=== PATIENT | female | born 1975 | race Caucasian/White ===

== ENCOUNTER → 2023-06-05 | Outpatient (CLI) | payer MEDICARE, SELFPAY ==
[2023-06-05 10:06] LABS: Absolute Lymphocyte Count 0.88 X10^3/uL (0.83-4.51); Absolute Neutrophil Count 5.1 X10^3/uL (2.0-7.7); Basophil# 0.05 X10^3/uL; Basophil% 0.7 % (0-1); Eosinophil# 0.23 X10^3/uL; Eosinophils% 3.4 % (0-5); Hematocrit 41.3 % (37-47); Hemoglobin 13.5 g/dL (12.0-15.0); Lymphocyte # 0.88 X10^3/ul (0.83-4.51); Mean Corp Hgb Conc 32.7 g/dL (32-36); Mean Corpuscular Hgb 29.8 pg (27.0-32.0); Mean Corpuscular Volume 91.2 fL (81-99); Mean Platelet Vol. 11.9 fl (6.2-12.0); Monocyte# 0.53 X10^3/uL; Monocyte% 7.8 % (0-10); NRBC Flagged by Analyzer 0 % (0-5); Neutrophil # 5.06 X10^3/uL (2.7-7.7); Neutrophil % 74.7 % (47-70); Platelet Count 164 K/mm3 (150-450); RBC Distribution Width SD 42.5 fl (35.1-43.9); Red Blood Count 4.53 M/mm3 (4.2-5.4); White Blood Count 6.8 K/mm3 (4.4-11.0)
[2023-06-05 10:30] LABS: Vitamin D,25 Hydroxy 53.5 ng/mL
[2023-06-05 10:32] LABS: Hemoglobin A1c 5.6 % (3.8-5.6)
[2023-06-05 10:33] LABS: PTHIN 10.1 pg/mL (18.4-80.1)
[2023-06-05 10:57] LABS: ALB/GLOB Ratio 1.2 RATIO (0.9-2.4); AST(SGOT) 18 U/L (15-37); Alanine Aminotransfer ALT/SGPT 22 U/L (13-56); Alkaline Phosphatase 61 U/L (45-117); Anion Gap 6 (5-15); BUN 23 mg/dL (7-18); BUN/Creat Ratio 18.1 RATIO (10-20); Calcium,Total 8.6 mg/dL (8.5-10.1); Chloride 99 mmol/L (98-107); Cholesterol 193 mg/dL (200); Creatinine, Serum 1.27 mg/dL (0.55-1.02); EST Glomerular Filtration Rate 48 mL/min (>60); Est Glom Filt Rate - Afr Amer 57 mL/min (>60); Ferritin 305 ng/mL (8-252); Free T3 2.1 pg/mL (2.18-3.98); Globulin 3.4 g/dL (2.2-4.2); Glucose 122 mg/dL (74-106); High Density Lipoprotein 33 mg/dL; Iron 92 ug/dL (50-170); Iron Binding Capacity,Total 268 ug/dL (250-450); Magnesium 2.1 mg/dL (1.6-2.6); PERCENT IRON SATURATION 34.3 % (15.0-55.0); Potassium 4.5 mmol/L (3.5-5.1); Protein, Total 7.4 g/dL (6.4-8.2); Sodium Level 134 mmol/L (136-145); T4 Free Direct 1.64 ng/dL (0.76-1.46); Thyroid Stim Hormone (TSH) 0.72 uIU/mL (0.358-3.74); Triglycerides 246 mg/dL; Very Low Density Lipoprotein 49 mg/dL (5-40)
== END | disposition home or self-care (01) ==
LOC: MFPLAB 08:31
PROVIDERS: PCP Family Medicine; Visit Provider Family Medicine
DX: E83.52 Hypercalcemia (principal); E11.22 Type 2 diabetes mellitus with diabetic chronic kidney disease; N18.30 Chronic kidney disease, stage 3 unspecified; E03.8 Other specified hypothyroidism
CPT/HCPCS: 36415; 80053; 80061; 82306; 82728; 83036; 83540; 83550; 83735; 83970; 84439; 84443; 84481; 85025

== ENCOUNTER → 2023-07-01 | Outpatient (CLI) | payer MEDICARE, OTHER, SELFPAY ==
[2023-07-01 16:31] LABS: PTHIN 13.3 pg/mL (18.4-80.1)
[2023-07-01 16:48] LABS: Hemoglobin A1c 5.5 % (3.8-5.6)
[2023-07-01 17:05] LABS: ALB/GLOB Ratio 1.4 RATIO (0.9-2.4); AST(SGOT) 27 U/L (15-37); Alanine Aminotransfer ALT/SGPT 26 U/L (13-56); Albumin, Serum 4.7 g/dL (3.2-5.0); Alkaline Phosphatase 58 U/L (45-117); Anion Gap 10 (5-15); BUN 33 mg/dL (7-18); BUN/Creat Ratio 20.2 RATIO (10-20); Calcium,Total 9.4 mg/dL (8.5-10.1); Chloride 98 mmol/L (98-107); Creatinine, Serum 1.63 mg/dL (0.55-1.02); EST Glomerular Filtration Rate 36 mL/min (>60); Est Glom Filt Rate - Afr Amer 43 mL/min (>60); Globulin 3.4 g/dL (2.2-4.2); Glucose 115 mg/dL (74-106); Potassium 4.3 mmol/L (3.5-5.1); Protein, Total 8.1 g/dL (6.4-8.2); Sodium Level 134 mmol/L (136-145)
== END | disposition home or self-care (01) ==
LOC: MTLAB 12:36
PROVIDERS: PCP Family Medicine; Referring Provider Family Medicine; Visit Provider Family Medicine
DX: N39.0 Urinary tract infection, site not specified (principal); E11.9 Type 2 diabetes mellitus without complications
CPT/HCPCS: 36415; 80053; 83036; 83970; 87086

== ENCOUNTER → 2023-07-19 | Outpatient (CLI) | payer MEDICARE, OTHER, SELFPAY ==
--- NOTE | 2023-07-19 09:39 | ECHOD_ITS ---
Reason For Study: Congential Heart Disease Procedure This was a 2D Doppler, Color Flow transthoracic echocardiogram. Exam performed in department. Left Ventricle Normal LV size. The left ventricular ejection fraction is 45 %. Stage 1 diastolic dysfunction. There is mild global hypokinesis of the left ventricle. Right Ventricle Normal RV size. Normal systolic function. Mitral Valve Normal mitral valve. Tricuspid Valve Normal tricuspid valve. Mild (1+) tricuspid valve insufficiency. Pulmonary artery systolic pressure is 40 mmHg. Aortic Valve Mild (1+) aortic valve insufficiency. Pulmonic Valve The pulmonic valve is not well visualized. Mild stenosis of the pulmonic valve. Peak gradient across the prosthetic pulmonic valve 7 mm with a mean gradient of 4 mm. Bioprosthetic pulmonic valve. Great Vessels Mildly dilated aortic root. The pulmonary artery is normal size. Normal inferior vena cava. Pericardium/Pleural No pericardial effusion. MMode/2D Measurements & Calculations LVIDd: 5.5 cm IVSd: 1.1 cm LVOT diam: 2.8 cm LVIDs: 4.3 cm LVPWd: 0.95 cm LVOT area: 6.2 cm2 RVDd: 2.9 cm FS: 21.3 % Ao root diam: 3.5 cm LAV(MOD-bp): 32.3 ml RVOT diam: 1.9 cm LAV(MOD-bp) Indexed: 20.3 ml/m2 LAV(MOD-sp2): 33.0 ml LAV(MOD-sp4): 28.6 ml LVAd ap4: 23.0 cm2 LVAd ap2: 22.9 cm2 SV(MOD-sp4): 31.4 ml LVLd ap4: 6.5 cm LVLd ap2: 6.7 cm EDV(MOD-sp4): 71.5 ml EDV(MOD-sp2): 67.3 ml EDV(sp4-el): 69.8 ml EDV(sp2-el): 66.7 ml LVAs ap4: 16.2 cm2 LVAs ap2: 15.6 cm2 LVLs ap4: 5.7 cm LVLs ap2: 6.0 cm ESV(MOD-sp4): 40.2 ml ESV(MOD-sp2): 36.2 ml ESV(sp4-el): 38.6 ml ESV(sp2-el): 34.3 ml EF(MOD-sp4): 43.8 % EF(MOD-sp2): 46.2 % EF(sp4-el): 44.7 % SV(MOD-sp2): 31.1 ml SV(sp4-el): 31.2 ml LA A4 area: 13.9 cm2 RA A4 area: 13.3 cm2 Doppler Measurements & Calculations MV E max roger: 36.6 cm/sec Lat Peak E' Roger: 13.9 cm/sec Med Peak E' Roger: 3.8 cm/sec MV A max roger: 45.1 cm/sec E/E' lat: 2.6 E/E' med: 9.7 MV E/A: 0.81 Ao V2 max: 89.2 cm/sec AI max roger: 420.6 cm/sec LV V1 max: 61.8 cm/sec Ao max P.2 mmHg AI max P.8 mmHg LV V1 max P.5 mmHg HUSAM(V,D): 4.3 cm2 AI dec slope: 285.0 cm/sec2 AI P1/2t: 432.3 msec PA V2 max: 130.4 cm/sec SV(RVOT): 41.2 ml TR max roger: 300.1 cm/sec PA max PG (full): 4.1 mmHg TR max P.0 mmHg PA V2 mean: 92.0 cm/sec PA mean PG (full): 2.1 mmHg ECHO/Echo Complete Interpretation Summary Normal LV size. The left ventricular ejection fraction is 45 %. Stage 1 diastolic dysfunction. Peak gradient across the prosthetic pulmonic valve 7 mm with a mean gradient of 4 mm Bioprosthetic pulmonic valve. Pulmonary artery systolic pressure is 40 mmHg. Ordering Physician: Maynor Hunter Referring Physician: [place] Performed By: Ceci aRe RDCS
== END | disposition home or self-care (01) ==
PROVIDERS: PCP Family Medicine; Referring Provider Internal Medicine Cardiovascular Disease; Visit Provider Internal Medicine Cardiovascular Disease
DX: Q21.3 Tetralogy of Fallot (principal); Q93.81 Velo-cardio-facial syndrome
CPT/HCPCS: 93306

== ENCOUNTER → 2023-10-29 | Outpatient (CLI) | payer MEDICARE, OTHER, SELFPAY ==
[2023-10-29 10:22] LABS: Ionized Calcium 4.73 mg/dL (4.36-5.20)
[2023-10-29 11:32] LABS: Hemoglobin A1c 5.5 % (3.8-5.6)
[2023-10-29 12:19] LABS: Albumin, Serum 4.2 g/dL (3.2-5.0); BUN 24 mg/dL (7-18); BUN/Creat Ratio 16.7 RATIO (10-20); Calcium,Total 9.2 mg/dL (8.5-10.1); Chloride 98 mmol/L (98-107); Creatinine, Serum 1.44 mg/dL (0.55-1.02); EST Glomerular Filtration Rate 41 mL/min (>60); Est Glom Filt Rate - Afr Amer 50 mL/min (>60); Glucose 126 mg/dL (74-106); Phosphorus 3.4 mg/dL (2.5-4.9); Potassium 4.3 mmol/L (3.5-5.1); Sodium Level 132 mmol/L (136-145)
[2023-10-29 17:20] LABS: Ionized Calcium Order ORDER TUBE
== END | disposition home or self-care (01) ==
LOC: MFPLAB 09:19
PROVIDERS: PCP Family Medicine; Visit Provider Family Medicine
DX: E11.9 Type 2 diabetes mellitus without complications (principal)
CPT/HCPCS: 36415; 80069; 82330; 83036

== ENCOUNTER → 2024-02-20 | Outpatient (CLI) | payer MEDICARE, OTHER, SELFPAY ==
[2024-02-20 12:16] LABS: PTHIN 6.6 pg/mL (18.4-80.1)
[2024-02-20 12:18] LABS: Hemoglobin A1c 5.7 % (3.8-5.6)
[2024-02-20 12:31] LABS: ALB/GLOB Ratio 1.2 RATIO (0.9-2.4); AST(SGOT) 23 U/L (15-37); Alanine Aminotransfer ALT/SGPT 30 U/L (13-56); Albumin, Serum 4.1 g/dL (3.2-5.0); Alkaline Phosphatase 56 U/L (45-117); Anion Gap 6 (5-15); BUN 31 mg/dL (7-18); Calcium,Total 8.9 mg/dL (8.5-10.1); Chloride 103 mmol/L (98-107); Creatinine, Serum 1.55 mg/dL (0.55-1.02); EST Glomerular Filtration Rate 38 mL/min (>60); Est Glom Filt Rate - Afr Amer 46 mL/min (>60); Globulin 3.3 g/dL (2.2-4.2); Glucose 112 mg/dL (74-106); Potassium 4.4 mmol/L (3.5-5.1); Protein, Total 7.4 g/dL (6.4-8.2); Sodium Level 135 mmol/L (136-145); Thyroid Stim Hormone (TSH) 0.809 uIU/mL (0.358-3.740)
== END | disposition home or self-care (01) ==
LOC: MFPLAB 09:24
PROVIDERS: PCP Family Medicine; Visit Provider Family Medicine
DX: E21.3 Hyperparathyroidism, unspecified (principal); E11.9 Type 2 diabetes mellitus without complications; E03.8 Other specified hypothyroidism
CPT/HCPCS: 36415; 80053; 83036; 83970; 84443

== ENCOUNTER → 2024-06-16 | Outpatient (CLI) | payer MEDICARE, OTHER, SELFPAY ==
[2024-06-16 10:54] LABS: Absolute Lymphocyte Count 1.08 X10^3/uL (0.83-4.51); Absolute Neutrophil Count 7.4 X10^3/uL (2.0-7.7); Basophil# 0.06 X10^3/uL; Basophil% 0.6 % (0-1); Eosinophils% 2.1 % (0-5); Hematocrit 39.5 % (37-47); Hemoglobin 12.8 g/dL (12.0-15.0); Lymphocyte # 1.08 X10^3/ul (0.83-4.51); Lymphocyte % 11.6 % (19-41); Mean Corp Hgb Conc 32.4 g/dL (32-36); Mean Corpuscular Hgb 29.7 pg (27.0-32.0); Mean Corpuscular Volume 91.6 fL (81-99); Mean Platelet Vol. 11.3 fl (6.2-12.0); Monocyte# 0.63 X10^3/uL; Monocyte% 6.7 % (0-10); NRBC Flagged by Analyzer 0 % (0-5); Neutrophil # 7.35 X10^3/uL (2.7-7.7); Neutrophil % 78.7 % (47-70); Platelet Count 194 K/mm3 (150-450); RBC Distribution Width CV 12.7 % (11.6-14.6); RBC Distribution Width SD 42.4 fl (35.1-43.9); Red Blood Count 4.31 M/mm3 (4.2-5.4); White Blood Count 9.4 K/mm3 (4.4-11.0)
[2024-06-16 11:52] LABS: Cholesterol 189 mg/dL (<=200); High Density Lipoprotein 39 mg/dL; Low Density Lipoprotein Calc. 117 mg/dL; Triglycerides 166 mg/dL; Very Low Density Lipoprotein 33 mg/dL (5-40); cholesterol:hdl ratio screen 4.81
[2024-06-16 12:33] LABS: ALB/GLOB Ratio 1.6 RATIO (0.9-2.4); Alanine Aminotransfer ALT/SGPT 18 U/L (<=34); Albumin, Serum 4.6 g/dL (3.5-5.0); Alkaline Phosphatase 60 U/L (35-104); Anion Gap 13 (5-15); BUN 30 mg/dL (4-19); BUN/Creat Ratio 21.2 RATIO (10-20); Calcium,Total 9.3 mg/dL (7.6-11.0); Carbon Dioxide 24.2 mmol/L (21.0-32.0); Chloride 99 mmol/L (98-108); Creatinine, Serum 1.41 mg/dL (0.70-1.20); EST Glomerular Filtration Rate 45 (>60); Globulin 2.9 g/dL (2.2-4.2); Glucose 113 mg/dL (70-99); Potassium 4.5 mmol/L (3.3-5.1); Protein, Total 7.4 g/dL (5.9-8.4); Sodium Level 136 mmol/L (133-145); Total Bilirubin 0.31 mg/dL (0.00-1.30)
[2024-06-16 12:47] LABS: AST(SGOT) 22 U/L (<=31); PTHIN 10 pg/mL (11-61)
== END | disposition home or self-care (01) ==
LOC: MFPLAB 08:55
PROVIDERS: PCP Family Medicine; Referring Provider Family Medicine; Visit Provider Family Medicine
DX: E03.8 Other specified hypothyroidism (principal)
CPT/HCPCS: 36415; 80053; 80061; 83970; 84439; 84443; 85025

== ENCOUNTER → 2024-08-12 | Outpatient (CLI) | payer MEDICARE, OTHER, SELFPAY ==
--- NOTE | 2024-08-12 10:03 | BI_ITS ---
EXAM: SCRN MAMM (CAD)W/BAILEE BILAT 08/12/2024 CLINICAL HISTORY: F, Age 49 y/o , SCREENING TECHNIQUE: Bilateral screening digital breast tomosynthesis with 2D and 3D images. Computer aided detection. COMPARISON: Baseline examination, no priors. FINDINGS: TISSUE DENSITY: The breast tissue is composed of scattered area of fibroglandular density. Bilateral Breast Mammographic Findings: There is a mass in the lower central left breast at anterior depth. No significant masses, calcifications or other abnormalities are identified in the right breast BI/SCRN MAMM (CAD)W/BAILEE BILAT IMPRESSION: The mass in the lower central left breast at anterior depth requires further ev aluation. Recommend diagnostic ultrasound of the left breast. Right Breast: BIRADS 1 NEGATIVE. Left Breast: BIRADS 0 Incomplete: Need additional imaging evaluation and/or pr ior mammograms for comparison.. OVERALL FINAL ASSESSMENT: BIRADS 0 Incomplete: Need additional imaging evaluati on and/or prior mammograms for comparison.. RECOMMENDATION: Ultrasound. A letter with findings and recommendations will be mailed to the patient. Reading Location: [id number]
== END | disposition home or self-care (01) ==
LOC: OPBI 10:01
PROVIDERS: PCP Family Medicine; Referring Provider Family Medicine; Visit Provider Family Medicine
DX: Z12.31 Encounter for screening mammogram for malignant neoplasm of breast (principal)
CPT/HCPCS: 77063; 77067

== ENCOUNTER → 2024-08-19 | Outpatient (CLI) | payer MEDICARE, OTHER, SELFPAY ==
--- NOTE | 2024-08-19 12:18 | US_ITS ---
PROCEDURE: BREAST LIMITED UNILATERAL 08/19/2024 REASON FOR EXAM: 49-year-old female presents for follow-up of the left breast findings seen on the examination of 08/12/2024. Family history of breast cancer in her mother at age 47, a maternal great aunt and a paternal grandmother. TECHNIQUE: Targeted left breast ultrasound. COMPARISON: Mammogram 08/12/2024 FINDINGS: Left breast ultrasound was targeted to the retroareolar. Follow-up examination performed for the left breast mass visualized on the examination of 08/12/2024. On the present examination, there is a cyst in the 6 o'clock retroareolar left breast, measuring 0.8 x 0.4 x 0.6 cm. This correlates with the mammographic finding. Also, there are some dilated ducts in the retroareolar region. US/Breast Limited Unilateral IMPRESSION: Impression: Benign cyst in the left breast at 6 o'clock retroareolar. Birads: BI-RADS 2: BENIGN. RECOMMEND ANNUAL MAMMOGRAPHIC SCREENING. Reading Location: [id number]
== END | disposition home or self-care (01) ==
LOC: OPUS 12:16
PROVIDERS: PCP Family Medicine; Referring Provider Family Medicine; Visit Provider Family Medicine
DX: R92.8 Other abnormal and inconclusive findings on diagnostic imaging of breast (principal)
CPT/HCPCS: 76642

== ENCOUNTER → 2024-09-23 | Outpatient (CLI) | payer MEDICARE, OTHER, SELFPAY ==
--- NOTE | 2024-09-23 11:00 | ECHOD_ITS ---
Reason For Study Reason For Study: Hx Tetralogy of Fallot Procedure This was a 2D Doppler, Color Flow transthoracic echocardiogram. Exam performed in department. Left Ventricle Normal LV size. The estimated ejection fraction is 48 %. There is mild global hypokinesis of the left ventricle. Right Ventricle Normal RV size. Normal systolic function. Atria Normal left atrium. Normal right atrium. Mitral Valve Normal mitral valve. Mild (1+) eccentric mitral valve insufficiency. Tricuspid Valve Normal tricuspid valve. Mild (1+) tricuspid valve insufficiency. Pulmonary artery systolic pressure is 33 mmHg. Aortic Valve Trisinus/trileaflet aortic valve. Mild (1+) aortic valve insufficiency. Pulmonic Valve Mild (1+) pulmonic valve insufficiency. No significant gradient across the pulmonic prosthetic valve. Bioprosthetic pulmonic valve. Great Vessels Mildly dilated aortic root. Pericardium/Pleural No pericardial effusion. MMode/2D Measurements & Calculations LVIDd: 5.5 cm IVSd: 0.85 cm LVOT diam: 2.9 cm LVIDs: 4.0 cm LVPWd: 0.78 cm LVOT area: 6.7 cm2 RVDd: 3.3 cm FS: 27.9 % Ao root diam: 3.8 cm LAV(MOD-bp): 39.1 ml RVOT diam: 1.9 cm LAV(MOD-bp) Indexed: 24.3 ml/m2 LAV(MOD-sp2): 45.5 ml LAV(MOD-sp4): 30.9 ml SV(MOD-sp4): 46.5 ml LVAd ap4: 27.2 cm2 LVAd ap2: 23.3 cm2 LVLd ap4: 6.7 cm LVLd ap2: 7.0 cm SI(MOD-sp4): 28.9 ml/m2 EDV(MOD-sp4): 97.3 ml EDV(MOD-sp2): 67.4 ml EDV(sp4-el): 93.9 ml EDV(sp2-el): 66.2 ml LVAs ap4: 18.8 cm2 LVAs ap2: 16.1 cm2 LVLs ap4: 6.1 cm LVLs ap2: 6.6 cm ESV(MOD-sp4): 50.9 ml ESV(MOD-sp2): 35.1 ml ESV(sp4-el): 49.0 ml ESV(sp2-el): 33.3 ml EF(MOD-sp4): 47.7 % EF(MOD-sp2): 48.0 % EF(sp4-el): 47.8 % SV(MOD-sp2): 32.3 ml SV(sp4-el): 44.8 ml LA A4 area: 14.6 cm2 SI(MOD-sp2): 20.2 ml/m2 LA dimension(2D): 2.5 cm RA A4 area: 19.1 cm2 Time Measurements MV dec time: 0.13 sec Doppler Measurements & Calculations MV E max roger: 52.5 cm/sec Lat Peak E' Roger: 14.4 cm/sec Med Peak E' Roger: 4.3 cm/sec MV A max roger: 47.6 cm/sec E/E' lat: 3.6 E/E' med: 12.1 MV E/A: 1.1 MV dec slope: 417.1 cm/sec2 Ao V2 max: 85.1 cm/sec AI max roger: 383.0 cm/sec Ao max P.9 mmHg AI max P.8 mmHg Ao V2 mean: 60.1 cm/sec AI dec slope: 222.6 cm/sec2 Ao mean P.6 mmHg AI P1/2t: 504.0 msec Ao V2 VTI: 18.2 cm AV (velocity ratio): 0.61 HUSAM(I,D): 4.1 cm2 HUSAM(V,D): 4.2 cm2 LV V1 max: 54.0 cm/sec SV(LVOT): 74.2 ml PA V2 max: 126.7 cm/sec LV V1 max P.2 mmHg PA V2 mean: 85.3 cm/sec LV V1 mean P.62 mmHg PA mean PG (full): 2.4 mmHg LV V1 mean: 37.8 cm/sec LV V1 VTI: 11.1 cm SV(RVOT): 45.4 ml TR max roger: 271.1 cm/sec Qp/Qs: 1.0/1.6 TR max P.4 mmHg ECHO/Echo Complete Interpretation Summary Normal LV size. The estimated ejection fraction is 48 %. No significant gradient across the pulmonic prosthetic valve. Mild (1+) aortic valve insufficiency. Compared to the previous echo from a year ago the above findings are essentiall y unchanged. Ordering Physician: Maynor Hunter Referring Physician: [place] Performed By: Ceci Rae RDCS
== END | disposition home or self-care (01) ==
LOC: CVS 10:59
PROVIDERS: PCP Family Medicine; Referring Provider Internal Medicine Cardiovascular Disease; Visit Provider Internal Medicine Cardiovascular Disease
DX: Q21.3 Tetralogy of Fallot (principal); Q25.5 Atresia of pulmonary artery; Z95.2 Presence of prosthetic heart valve
CPT/HCPCS: 93306

== ENCOUNTER → 2024-10-06 | Outpatient (CLI) | payer MEDICARE, OTHER, SELFPAY ==
--- OUTSIDE RECORDS SUMMARY | 2024-10-06 21:09 | XMS RPT_ITS | CCD ---
Author Organization [facility] CliniSyut Care Team Providers Care Needle Grader Name Role Phone Dr. Maynor Hunter Attending Provider MD Kita Chalon Primary Care Provider MD Kita Chalon Referring Provider [phone] Kita SANCHEZ, Chalon Primary Care Provider [phone] Kita SANCHEZ, Chalon Referring Provider [phone] Dr. Clifton Villegas DO Attending Provider Italia East MD Attending Provider Kita SANCHEZ, Chalon Primary Care Provider Kita SANCHEZ, Italia Referring Provider [phone] Dr. Maynor Hunter MD Attending Provider Lukasz ENGINE MAINTENANCE MECHANIC-CMeme Attending Provider Dr. Maynor Hunter MD Referring Provider Drew ENGINE MAINTENANCE MECHANIC-CPrincess Attending Provider Princess Russell NP Attending Unavailable Kita, Chalon Primary Care Unavailable Kita, Chalon Primary Care Unavailable Kita, Chalon Attending Unavailable Kita, Chalon Primary Care Unavailable Meme Lal Attending Unavailable Lal, Meme Referring Unavailable Kita, Chalon Primary Care Unavailable Lal, Meme Attending Unavailable Lal, Meme Referring Unavailable Kita, Chalon Attending Unavailable Kita, Chalon Primary Care Unavailable Clifton Villegas Attending Unavailable Kita, Chalon Referring Unavailable Kita, Chalon Primary Care Unavailable Maynor Hunter Attending Unavailable Kita, Chalon Referring Unavailable Kita, Chalon Primary Care Unavailable Lal, Meme Attending Unavailable Kita, Chalon Referring Unavailable Kita, Chalon Primary Care Unavailable Maynor Hunter Attending Unavailable Kita, Chalon Primary Care Unavailable Kita, Chalon Primary Care Unavailable Elsa, Maynor Attending Unavailable Kita, Chalon Referring Unavailable Kita, Chalon Attending Unavailable Kita, Chalon Referring Unavailable Kita, Chalon Primary Care Unavailable Kita, Chalon Attending Unavailable Kita, Chalon Referring Unavailable Kita, Chalon Primary Care Unavailable Kita, Chalon Attending Unavailable Kita, Chalon Referring Unavailable Kita, Chalon Primary Care Unavailable Elsa, Slater Attending Unavailable Elsa, Slater Referring Unavailable Kita, Chalon Primary Care Unavailable Allergies Allergy Classification Reported Allergen(s) Allergy Type Date of Onset Reaction(s) Facility (6 sources) Codeine Drug Allergy 4 Anaphylaxis [facility] (6 sources) EPINEPHrine Drug Allergy 4 Other [facility] Comment on above: rotor coil taper said t o avoid (6 sources) Erythromycin Drug Allergy 4 Hives [facility] (6 sources) Morphine Drug Allergy 4 Anaphylaxis [facility] (6 sources) Ondansetron Drug Allergy 4 Anaphylaxis [facility] (6 sources) Sulfonamides (Antibiotic) Allergy to substance 4 Rash [facility] (1 source) Codeine Drug Allergy 5 [facility] Repository (1 source) EPINEPHrine Drug Allergy 5 [facility] (1 source) Erythromycin Drug Allergy 5 [facility] (1 source) Morphine Drug Allergy 5 [facility] (1 source) Ondansetron Drug Allergy 5 [facility] (1 source) Sulfonamides (Antibiotic) Drug allergy (disorder) 5 [facility] Medications Current Medications Medication Drug Class(es) Dates Sig (Normalized) Sig (Original) [id number] 200 actuat albuterol 0.09 mg/actuat metered dose inhaler (6 sources) beta2-Adrenergic Agonist Start: 06-05-2023 Albuterol Sulfate 90 mcg/actuation HFA aerosol inhaler Active 2 NMA INHALATION EVERY 6 HOURS as needed June 05, 2023 1:00am Start: 06-05-2023 take 1 puff(s) by in halation every six hours Albuterol Sulfate Active 2 PUFF INHALATION EVERY 6 HOURS June 05, 2023 1:00am aspirin 81 mg delayed release oral tablet (6 sources) Platelet Aggregation Inhibitor, Nonsteroidal Anti-inflammatory Drug Start: 06-05-2023 take 1 tablet by mouth once daily Aspirin (Adult Aspirin Regimen) 81 mg tablet,delayed release (DR/EC) Active 81 mg PO DAILY June 05, 2023 1:00am calcitriol 0.88693 mg oral capsule (6 sources) Vitamin D3 Analog Start: 06-05-2023 take 1 capsule by mouth once daily Calcitriol 0.25 mcg capsule Active 0.25 ug PO DAILY June 05, 2023 1:00am calcium carbonate 1250 mg chewable tablet (6 sources) Start: 06-05-2023 take 1 tablet by mouth once daily Calcium Carbonate 500 mg calcium (1,250 mg) tablet,chewable Active 500 mg PO DAILY June 05, 2023 1:00am cholecalciferol 0.05 mg oral capsule (6 sources) Vitamin D Start: 06-05-2023 take 1 capsule by mouth once daily Cholecalciferol (Vitamin D3) 50 mcg (2,000 unit) capsule Active 50 ug PO DAILY June 05, 2023 1:00am docusate sodium 250 mg oral capsule (10 sources) Start: 06-05-2023 End: 01-10-2024 take 1 capsule by mouth once daily as needed Docusate Sodium 250 mg capsule Active 250 mg PO DAILY as needed January 10, 2024 12:34pm fenofibrate 54 mg oral tablet (6 sources) Peroxisome Proliferator Receptor alpha Agonist Start: 06-05-2023 take 1 tablet by mouth once daily Fenofibrate 54 mg tablet Active 54 mg PO DAILY June 05, 2023 1:00am ferrous sulfate 325 mg oral tablet (6 sources) Start: 06-05-2023 take 1 tablet by mouth once daily Ferrous Sulfate 325 mg (65 mg iron) tablet Active 325 mg PO DAILY June 05, 2023 1:00am fexofenadine hydrochloride 60 mg oral tablet (6 sources) Histamine-1 Receptor Antagonist Start: 06-05-2023 take 1 tablet by mouth twice daily Fexofenadine 60 mg tablet Active 60 mg PO TWICE A DAY June 05, 2023 1:00am fluticasone propionate 0.05 mg/actuat metered dose nasal spray (10 sources) Corticosteroid Start: 06-05-2023 End: 05-20-2024 Fluticasone Propionate 50 mcg/actuation spray,suspension Active 1 NMA INTRANASAL DAILY May 20, 2024 2:05pm administer into each nostril Start: 06-05-2023 take 1 spray(s) nasa l route once daily Fluticasone Propionate Active 1 SPRAY INTRANASAL DAILY June 05, 2023 1:00am administer into each nostril 30 actuat fluticasone furoate 0.2 mg/actuat / vilanterol 0.025 mg/actuat dry powder inhaler (10 sources) Corticosteroid, beta2-Adrenergic Agonist Start: 06-05-2023 End: 05-20-2024 Fluticasone Furoate-Vilanterol (Breo Ellipta) 200-25 mcg/dose blister with device Active 1 NMA INHALATION DAILY May 20, 2024 2:05pm Start: 06-05-2023 Fluticasone Fu roate-Vilanterol (Breo Ellipta) 200-25 mcg/dose blister with device Active 1 INH INHALATION DAILY June 05, 2023 1:00am levothyroxine sodium 0.137 mg oral tablet (16 sources) l-Thyroxine Start: 03-27-2024 take 1 tablet by mouth once daily Levothyroxine 137 mcg tablet Active 137 ug PO daily March 27, 2024 1:00am Start: 06-19-2023 Levothyroxine Active 137 MCG PO .COMPLEX June 19, 2023 11:57am 137 mcg orally take one tablet daily plus 1/2 tablet on Sund; Start: 06-05-2023 End: 03-27-2024 Levothyroxine 150 mcg capsul e Discontinued 137 ug PO .COMPLEX June 19, 2023 11:57am March 27, 2024 12:13pm 137 mcg orally take one tablet daily plus 1/2 tablet on Sund; LORazepam 1 mg oral tablet (12 sources) Benzodiazepine Start: 06-05-2023 End: 06-19-2023 take 1 tablet by mouth at bedtime as needed Lorazepam 1 mg tablet Active 1 mg PO AT BEDTIME as needed June 19, 2023 11:59am magnesium oxide 250 mg oral tablet (6 sources) Start: 06-05-2023 take 1 tablet by mouth once daily Magnesium Oxide 250 mg magnesium tablet Active 250 mg PO DAILY June 05, 2023 1:00am 24 hr metoprolol succinate 25 mg extended release oral tablet (16 sources) beta-Adrenergic Keily Start: 06-05-2023 End: 11-26-2023 Metoprolol Succinate (Toprol Xl) 25 mg tablet extended release 24 hr Active 37.5 mg PO DAILY November 26, 2023 11:04am Start: 06-05-2023 End: 06-05-2023 take 1 tablet by mouth once daily Metoprolol Succinate (Toprol Xl) 25 mg tablet extended release 24 hr Discontinued 25 mg PO DAILY June 05, 2023 1:00am June 05, 2023 10:37am montelukast 10 mg oral tablet (10 sources) Leukotriene Receptor Antagonist Start: 06-05-2023 End: 05-20-2024 take 1 tablet by mouth at bedtime Montelukast (Singulair) 10 mg tablet Active 10 mg PO AT BEDTIME 90 May 20, 2024 2:06pm OLANZapine 10 mg oral tablet (6 sources) Atypical Antipsychotic Start: 06-05-2023 take 1 tablet by mouth at bedtime Olanzapine (Zyprexa) 10 mg tablet Active 10 mg PO AT BEDTIME June 05, 2023 1:00am omeprazole 20 mg delayed release oral capsule (6 sources) Proton Pump Inhibitor Start: 06-05-2023 take 1 capsule by mouth once daily Omeprazole 20 mg capsule,delayed release(DR/EC) Active 20 mg PO DAILY June 05, 2023 1:00am Completed/Discontinued Medications Medication Drug Class(es) Dates Sig (Normalized) Sig (Original) amoxicillin 500 mg oral capsule (12 sources) Penicillin-class Antibacterial Start: 06-05-2023 End: 03-27-2024 take 1 capsule by mouth once daily as needed Amoxicillin 500 mg capsule Discontinued 500 mg PO DAILY as needed June 05, 2023 10:22am March 27, 2024 12:13pm Start: 06-05-2023 End: 06-05-2023 take 1 capsule by mouth twice daily Amoxicillin 500 mg capsule Discontinued 500 mg PO TWICE A DAY June 05, 2023 1:00am June 05, 2023 10:37am furosemide 20 mg oral tablet (18 sources) Loop Diuretic Start: 06-05-2023 End: 06-19-2023 Furosemide (Lasix) 20 mg tablet Discontinued 20 mg PO .COMPLEX June 05, 2023 10:24am June 19, 2023 12:48pm 20 mg orally; take 1 tablet on Saturday, 1/2 tablet on Saturday and Saturday. May take additional 1/2 tab for weight gain of more than 2lbs. 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; Translations: [Atresia of pulmonary artery] Onset: 03-27-2024 06-05-2023 Chronic Comment on above: VSD repair, ASD clos ure and pulmonary valve replacement 2016 Cardiac dysrhythmias (6 sources) Palpitations; Translations: [Palpitations] 06-05-2023 Episodic Chronic kidney disease (6 sources) Chronic kidney disease; Translations: [Chronic kidney disease, unspecified] 06-05-2023 Chronic Chronic obstructive pulmonary disease and bronchiectasis (6 sources) Obstruction of lower respiratory tract; Translations: [Chronic obstructive pulmonary disease, unspecified] 06-05-2023 Chronic Congestive heart failure; nonhypertensive (6 sources) Congestive heart failure; Translations: [Heart failure, unspecified] 06-20-2023 Chronic Deficiency and other anemia (6 sources) Iron deficiency anemia; Translations: [Iron deficiency anemia, unspecified] 06-20-2023 Episodic Diabetes mellitus without complication (7 sources) Diabetes mellitus; Translations: [Type 2 diabetes mellitus without complications] Onset: 11-14-2023 06-05-2023 Chronic Disorders of lipid metabolism (11 sources) Hypertriglyceridemi a; Translations: [Pure hyperglyceridemia] 06-05-2023 Chronic Heart valve disorders (6 sources) Pulmonic valve stenosis; 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] 06-20-2023 Chronic Immunity disorders (11 sources) 22q11.2 deletion syndrome; 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] 06-05-2023 Chronic Mood disorders (6 sources) Bipolar disorder; Translations: [Bipolar disorder, unspecified] 06-05-2023 Chronic Other and ill-defined heart disease (6 sources) Left ventricular systolic dysfunction; Translations: [Heart disease, unspecified] 06-05-2023 Chronic Other and ill-defined heart disease (6 sources) Left cardiac ventricular dilatation; Translations: [Cardiomegaly] 06-05-2023 Chronic Other ear and sense organ disorders (6 sources) Hearing loss; Translations: [Unspecified hearing loss, unspecified ear] 06-20-2023 Chronic Other endocrine disorders (6 sources) Hypoparathyroidism; Translations: [Hypoparathyroidism , unspecified] 06-20-2023 Chronic Other endocrine disorders (1 source) Hyperparathyroidism , unspecified; Translations: [Hyperparathyroidis m, unspecified] Onset: 03-16-2024 Chronic Other lower respiratory disease (6 sources) Respiratory insufficiency; Translations: [Other disorders of lung] 06-05-2023 Episodic Other lower respiratory disease (4 sources) Dyspnea; Translations: [Dyspnea, unspecified] 09-21-2024 Episodic Other lower respiratory disease (2 sources) Dyspnea, unspecified; Translations: [Dyspnea, unspecified] Onset: 09-21-2024 Episodic Other nutritional; endocrine; and metabolic disorders (6 sources) Hypercalcemia; Translations: [Hypercalcemia] 06-20-2023 Chronic Other screening for suspected conditions (not mental disorders or infectious disease) (2 sources) Other abnormal and inconclusive findings on diagnostic imaging of breast; Translations: [Encounter for screening mammogram for malignant neoplasm of breast] Onset: 08-18-2024 Episodic Amanda-; endo-; and myocarditis; cardiomyopathy (except that caused by tuberculosis or sexually transmitted disease) (6 sources) Cardiomyopathy; Translations: [Cardiomyopathy, unspecified] 06-20-2023 Chronic Pulmonary heart disease (6 sources) Pulmonary hypertension; Translations: [Pulmonary hypertension, unspecified] 06-20-2023 Chronic Residual codes; unclassified (9 sources) Obstructive sleep apnea syndrome; Translations: [Obstructive sleep apnea (adult) (pediatric)] 06-20-2023 Chronic Comment on above: AutoPap Residual codes; unclassified (1 source) Obstructive sleep apnea (adult) (pediatric); Translations: [Obstructive sleep apnea (adult) (pediatric)] Onset: 03-27-2024 Chronic Syncope (11 sources) Syncope; Translations: [Syncope and collapse] 06-19-2023 Episodic Thyroid disorders (1 source) Other specified hypothyroidism; Translations: [Other specified hypothyroidism] Onset: 06-30-2024 Chronic Unclassified (2 sources) This note was generated with WorkCastation software. It may contain incorrect words, spelling, and punctuation that were not noted in checking the note before signing. 09-21-2024 Results Test Name Value Interpretation Reference Range Facility Echocardiogram study reportO rdered By: Maynor Hunter on 09-28-2024 Study report [facility] [address] [place] [address] Echo Complete 09/23/24 1106 MR#: [id number] Acct: [id number] Name: ALVA BARNES JULIET Rep #:[id number] : 1975 49 From: Maynor Payton Attending Dr: Dr. Maynor Hunter MD S tatus: REG CLI Ordering Dr: Maynor Hunter MD Date: 03/09 Location: [facility] Sex: F C Admitted: Reason For Study Reason For Study: Hx Tetralogy of Fallot Procedure This was a 2D Doppler, Color Flow transthoracic echocardiogram. Exam performed in department. Left Ventricle Normal LV size. The estimated ejection fraction is 48 %. There is mild global hypokinesis of the left ventricle. Right Ventricle Normal RV size. Normal systolic function. Atria Normal left atrium. Normal right atrium. Mitral Valve Normal mitral valve. Mild (1+) eccentric mitral valve insufficiency. Tricuspid Valve Normal tricuspid valve. Mild (1+) tricuspid valve insufficiency. Pulmonary artery systolic pressure is 33 mmHg. Aortic Valve Trisinus/trileaflet aortic valve. Mild (1+) aortic valve insufficiency. Pulmonic Valve Mild (1+) pulmonic valve insufficiency. No significant gradient across the pulmonic prosthetic valve. Bioprosthetic pulmonic valve. Great Vessels Mildly dilated aortic root. Pericardium/Pleural No pericardial effusion. MMode/2D Measurements & Calculations LVIDd: 5.5 cm IVSd: 0.85 cm LVOT diam: 2.9 cm LVIDs: 4.0 cm LVPWd: 0.78 cm LVOT area: 6.7 cm2 RVDd: 3.3 cm FS: 27.9 % __ Ao root diam: 3.8 cm LAV(MOD-bp): 39.1 ml RVOT diam: 1.9 cm LAV(MOD-bp) Indexed: 24.3 ml/m2 LAV(MOD-sp2): 45.5 ml LAV(MOD-sp4): 30.9 ml __ SV(MOD-sp4): 46.5 ml LVAd ap4: 27.2 cm2 LVAd ap2: 23.3 cm2 LVLd ap4: 6.7 cm LVLd ap2: 7.0 cm SI(MOD-sp4): 28.9 ml/m2 EDV(MOD-sp4): 97.3 ml EDV(MOD-sp2): 67.4 ml EDV(sp4-el): 93.9 ml EDV(sp2-el): 66.2 ml LVAs ap4: 18.8 cm2 LVAs ap2: 16.1 cm2 LVLs ap4: 6.1 cm LVLs ap2: 6.6 cm ESV(MOD-sp4): 50.9 ml ESV(MOD-sp2): 35.1 ml ESV(sp4-el): 49.0 ml ESV(sp2-el): 33.3 ml EF(MOD-sp4): 47.7 % EF(MOD-sp2): 48.0 % EF(sp4-el): 47.8 % __ SV(MOD-sp2): 32.3 ml SV(sp4-el): 44.8 ml LA A4 area: 14.6 cm2 SI(MOD-sp2): 20.2 ml/m2 LA dimension(2D): 2.5 cm RA A4 area: 19.1 cm2 Time Measurements MV dec time: 0.13 sec Doppler Measurements & Calculations MV E max roger: 52.5 cm/sec Lat Peak E' Roger: 14.4 cm/sec Med Peak E' Roger: 4.3 cm/sec MV A max roger: 47.6 cm/sec E/E' lat: 3.6 E/E' med: 12.1 MV E/A: 1.1 ____ MV dec slope: 417.1 cm/sec2 Ao V2 max: 85.1 cm/sec AI max roger: 383.0 cm/sec Ao max P.9 mmHg AI max P.8 mmHg Ao V2 mean: 60.1 cm/sec AI dec slope: 222.6 cm/sec2 Ao mean P.6 mmHg AI P1/2t: 504.0 msec Ao V2 VTI: 18.2 cm AV (velocity ratio): 0.61 HUSAM(I,D): 4.1 cm2 HUSAM(V,D): 4.2 cm2 ____ LV V1 max: 54.0 cm/sec SV(LVOT): 74.2 ml PA V2 max: 126.7 cm/sec LV V1 max P.2 mmHg PA V2 mean: 85.3 cm/sec LV V1 mean P.62 mmHg PA mean PG (full): 2.4 mmHg LV V1 mean: 37.8 cm/sec LV V1 VTI: 11.1 cm __ SV(RVOT): 45.4 ml TR max roger: 271.1 cm/sec Qp/Qs: 1.0/1.6 TR max P.4 mmHg ECHO/Echo Complete Interpretation Summary Normal LV size. The estimated ejection fraction is 48 %. No significant gradient across the pulmonic prosthetic valve. Mild (1+) aortic valve insufficiency. Compared to the previous echo from a year ago the above findings are essentiallyunchange d. __ Ordering Physician: Maynor Hunter Referring Physician: Italia East Performed By: Ceci Rae, RDCS 09/28/24914 Date _ Maynor Hunter MD CC: Dr. Italia East MD; Dr. Maynor Hunter MD ~ Date Dictated: 09/23/24 1106 Date Transcribed: 09/28/24914 Photographer Model: Signed [facility] Work Phone: Echo Completeon 09-23-2024 Echo Complete [facility] [address] [place] [address] Echo Complete 09/23/241105 MR#: [id number] Acct: [id number] Name: ALVA BARNES JULIET Rep #: [id number] : 1975 49 From: Maynor Hunter MD Attending Dr: Dr. Maynor Hunter MD Status: REG C Ordering Dr: Maynor Hunter MD Date: 09/23/24 Location: [facility] Sex: F C Admitted: Reason For Study Reason For Study: Hx Tetralogy of Fallot Procedure This was a 2D Doppler, Color Flow transthoracic echocardiogram. Exam performed in department. Left Ventricle Normal LV size. The estimated ejection fraction is 48 %. There is mild global hypokinesis of the left ventricle. Right Ventricle Normal RV size. Normal systolic function. Atria Normal left atrium. Normal right atrium. Mitral Valve Normal mitral valve. Mild (1+) eccentric mitral valve insufficiency. Tricuspid Valve Normal tricuspid valve. Mild (1+) tricuspid valve insufficiency. Pulmonary artery systolic pressure is 33 mmHg. Aortic Valve Trisinus/trileaflet aortic valve. Mild (1+) aortic valve insufficiency. Pulmonic Valve Mild (1+) pulmonic valve insufficiency. No significant gradient across the pulmonic prosthetic valve. Bioprosthetic pulmonic valve. Great Vessels Mildly dilated aortic root. Pericardium/Pleural No pericardial effusion. MMode/2D Measurements Calculations LVIDd: 5.5 cm IVSd: 0.85 cm LVOT diam: 2.9 cm LVIDs: 4.0 cm LVPWd: 0.78 cm LVOT area: 6.7 cm2 RVDd: 3.3 cm FS: 27.9 % __ Ao root diam: 3.8 cm LAV(MOD-bp): 39.1 ml RVOT diam: 1.9 cm LAV(MOD-bp) Indexed: 24.3 ml/m2 LAV(MOD-sp2): 45.5 ml LAV(MOD-sp4): 30.9 ml __ SV(MOD-sp4): 46.5 ml LVAd ap4: 27.2 cm2 LVAd ap2: 23.3 cm2 LVLd ap4: 6.7 cm LVLd ap2: 7.0 cm SI(MOD-sp4): 28.9 ml/m2 EDV(MOD-sp4): 97.3 ml EDV(MOD-sp2): 67.4 ml EDV(sp4-el): 93.9 ml EDV(sp2-el): 66.2 ml LVAs ap4: 18.8 cm2 LVAs ap2: 16.1 cm2 LVLs ap4: 6.1 cm LVLs ap2: 6.6 cm ESV(MOD-sp4): 50.9 ml ESV(MOD-sp2): 35.1 ml ESV(sp4-el): 49.0 ml ESV(sp2-el): 33.3 ml EF(MOD-sp4): 47.7 % EF(MOD-sp2): 48.0 % EF(sp4-el): 47.8 % __ SV(MOD-sp2): 32.3 ml SV(sp4-el): 44.8 ml LA A4 area: 14.6 cm2 SI(MOD-sp2): 20.2 ml/m2 __ LA dimension(2D): 2.5 cm RA A4 area: 19.1 cm2 Time Measurements MV dec time: 0.13 sec Doppler Measurements Calculations MV E max roger: 52.5 cm/sec Lat Peak E' Roger: 14.4 cm/sec Med Peak E' Roger: 4.3 cm/sec MV A max roger: 47.6 cm/sec E/E' lat: 3.6 E/E' med: 12.1 MV E/A: 1.1 __ MV dec slope: 417.1 cm/sec2 Ao V2 max: 85.1 cm/sec AI max roger: 383.0 cm/sec Ao max P.9 mmHg AI max P.8 mmHg Ao V2 mean: 60.1 cm/sec AI dec slope: 222.6 cm/sec2 Ao mean P.6 mmHg AI P1/2t: 504.0 msec Ao V2 VTI: 18.2 cm AV (velocity ratio): 0.61 HUSAM(I,D): 4.1 cm2 HUSAM(V,D): 4.2 cm2 __ LV V1 max: 54.0 cm/sec SV(LVOT): 74.2 ml PA V2 max: 126.7 cm/sec LV V1 max P.2 mmHg PA V2 mean: 85.3 cm/sec LV V1 mean P.62 mmHg PA mean PG (full): 2.4 mmHg LV V1 mean: 37.8 cm/sec LV V1 VTI: 11.1 cm __ SV(RVOT): 45.4 ml TR max roger: 271.1 cm/sec Qp/Qs: 1.0/1.6 TR max P.4 mmHg ECHO/Echo Complete Interpretation Summary Normal LV size. The estimated ejection fraction is 48 %. No significant gradient across the pulmonic prosthetic valve. Mild (1+) aortic valve insufficiency. Compared to the previous echo from a year ago the above findings are essentially unchanged. __ Ordering Physician: Maynor Hunter Referring Physician: Italia East Performed By: Ceci Rae RDCS 09/28/24914 Date Maynor Hunter MD CC: Dr. Italia East MD; Dr. Maynor Hunter MD Date Dictated: 09/23/24 1106 Date Transcribed: 09/28/24914 Photographer Model: Signed Normal [facility] Pulmonary Visit Reporton Pulmonary Visit Report [facility] Pulmonary Medicine of [address] [place] [address] OFFICE VISIT Date of Service: 09/21/24 MR#: [id number] Acct: [id number] Name: ALVA BARNES JULIET Rep #: [id number] : 1975 Provider: PAMELA Lal Age/Sex: 49/F Location: [facility] Status: Signed Assessment and Plan Assessment and Plan (1) CECIL (obstructive sleep apnea): Status: Chronic Comment: AutoPap Plan: She is using and benefiting from Pap therapy. No indication for titration study at this time. Contact the office for any new or worsening symptoms in the meantime. (2) Asthma: Status: Chronic Qualifiers: Asthma complication type: uncomplicated Asthma persistence: persistent Asthma severity: moderate Qualified Code(s): J45.40 - Moderate persistent asthma, uncomplicated Plan: Stable, no signs of exacerbation of asthma today. No change in maintenance medications, controlled on Breo, Lisa, Singulair and Flonase. Repeat PFT. Contact the office with any signs of new or worsening symptoms. Return to the office in 4 to 6 weeks. 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 She is status post VSD repair, ASD closure and pulmonary valve replacement (in 2016). (4) Dyspnea: Status: Chronic Qualifiers: Dyspnea type: shortness of breath Qualified Code(s): R06.02 - Shortness of breath Plan: Likely multifactorial. Performing a walking oximetry to determine if the patient qualifies for supplemental oxygen. Return to the office once test results are available for review. Orders: Orders Simple Pulmonary Exercise Test Today R06.00 - Dyspnea, unspecified PFT Complete - DLCO, Spirometry b/a bronchodilators, lung volumes Today R06.00 - Dyspnea, unspecified Plan Details Health Concerns: This note was generated with Ntirety dictation software. It may contain incorrect words, spelling, and punctuation that were not noted in checking the note before signing. Follow Up: 6 Weeks HPI 6 M FU Chief Complaint: Shortness of breath on exertion HPI Comments Details: The patient is a 49-year-old female who presents to the office today for routine follow-up regarding her asthma, sleep apnea that is complicated by a history of pulmonary atresia. She is ambulatory with the use of a wheeled walker and currently on room air. She is accompanied today by her mother. She has not recently been seen in the ED or urgent care for an respiratory illness. She has not required any antibiotics or prednisone for any breathing problems. She is compliant with use of Breo 1 puff daily. She does report rinsing her mouth out after each use. She denies any medication side effects such as sore throat or thrush. She is also compliant with Singulair, Flonase and Lisa daily. She has been feeling more symptomatic over the past week and has been utilizing albuterol more frequently. She does have shortness of breath that is worse with exertion. She denies any difficulty with cough, sputum production or hemoptysis. She denies any wheezing, chest tightness, chest pain or palpitations. She has not had any fever, chills or body aches. She wakes up feeling rested and refreshed with use of her PAP device. She only occasionally experiences difficulty with dry mouth. She has not having excessive nocturia. She occasionally naps, however not daily. She has supplemental oxygen at home. She typically wears 4 to 5 L/min. She checks her oxygen saturations frequently. Over the past week it has noted to drop as low as 83 or 84% while on room air. Compliance report for the past 30 days shows 100% compliance with average use of 9 hours and 13 minutes per night. Current setting is 9 to 18 cm of water with pressure typically being utilized at 9.8 to 13.8 cm of water. Residual AHI 0.6 events per hour. Leaks do not appear to be problematic. Intake Vital Signs 03/27/24 09:39 09/21/24 08:45 Height 5 ft 3 in 5 ft 3 in Weight: 132 lb BMI 23.3 BP 115/72 Blood Pressure Location Rt brachial Position Sitting Respiration 18 Pulse 75 Pulse Source NIBP Temp 97.3 F L Temperature Source Temporal Artery Pulse Oximetry (%) 97 Oxygen Delivery Method room air Intake Visit Reasons: 6 M FU Retail Beauty Specialist Required: No DME Vendor: Would like [employer] as they do not currently have a supplier Accompanied by: Mother Is patient in pain?: No Allergies codeine Allergy (Severe, Verified 09/21/24 10:19) Anaphylaxis morphine Allergy (Severe, Verified 09/21/24 10:19) Anaphylaxis ondansetron Allergy (Severe, Verified 09/21/24 10:19) Anaphylaxis erythromycin base Allergy (Verified 09/21/24 10:19) Hives Sulfa (Sulfonamide Antibiotics) (more content not included)... Normal [facility] Breast Limited Unilateralon 08-19-2024 Breast Limited Unilateral [facility] Imaging Services [address] [place], [place] [id number] Breast Limited Unilateral MR#: [id number] Acct: [id number] Name: ALVA BARNES Rep #: [id number] : 1975 F 49 From: Arlin Nicolas MD PCP: Dr. Italia East MD Status: REG CLI Study: Breast Limited Unilateral Date of Exam: Exam# [id number] Ordering Dr: Italia East MD PROCEDURE: BREAST LIMITED UNILATERAL 08/19/2024 REASON FOR EXAM: 49-year-old female presents for follow-up of the left breast findings seen on the examination of 08/12/2024. Family history of breast cancer in her mother at age 47, a maternal great aunt and a paternal grandmother. TECHNIQUE: Targeted left breast ultrasound. COMPARISON: Mammogram 08/12/2024 FINDINGS: Left breast ultrasound was targeted to the retroareolar. Follow-up examination performed for the left breast mass visualized on the examination of 08/12/2024. On the present examination, there is a cyst in the 6 o'clock retroareolar left breast, measuring 0.8 x 0.4 x 0.6 cm. This correlates with the mammographic finding. Also, there are some dilated ducts in the retroareolar region. US/Breast Limited Unilateral IMPRESSION: Impression: Benign cyst in the left breast at 6 o'clock retroareolar. Birads: BI-RADS 2: BENIGN. RECOMMEND ANNUAL MAMMOGRAPHIC SCREENING. Reading Location: [facility] CC: Dr. Italia East MD Photographer Model: Signed Normal [facility] SCRN MAMM (CAD)W/BAILEE BILATo n 08-12-2024 SCRN MAMM (CAD)W/BAILEE BILAT [facility] Imaging Services [address] [place] [id number] SCRN MAMM (CAD)W/BAILEE BILAT MR#: [id number] Acct: [id number] Name: ALVA BARNES Rep #: [id number] : 1975 F 49 From: Arlin Nicolas MD PCP: Dr. Italia East MD Status: REG CLI Study: SCRN MAMM (CAD)W/BAILEE BILAT Date of Exam: 07/16 Exam# [id number] Ordering Dr: Italia East MD EXAM: SCRN MAMM (CAD)W/BAILEE BILAT 08/12/2024 CLINICAL HISTORY: F, Age 49 y/o , SCREENING TECHNIQUE: Bilateral screening digital breast tomosynthesis with 2D and 3D images. Computer aided detection. COMPARISON: Baseline examination, no priors. FINDINGS: TISSUE DENSITY: The breast tissue is composed of scattered area of fibroglandular density. Bilateral Breast Mammographic Findings: There is a mass in the lower central left breast at anterior depth. No significant masses, calcifications or other abnormalities are identified in the right breast BI/SCRN MAMM (CAD)W/BAILEE BILAT IMPRESSION: The mass in the lower central left breast at anterior depth requires further evaluation. Recommend diagnostic ultrasound of the left breast. Right Breast: BIRADS 1 NEGATIVE. Left Breast: BIRADS 0 Incomplete: Need additional imaging evaluation and/or prior mammograms for comparison.. OVERALL FINAL ASSESSMENT: BIRADS 0 Incomplete: Need additional imaging evaluation and/or prior mammograms for comparison.. RECOMMENDATION: Ultrasound. A letter with findings and recommendations will be mailed to the patient. Reading Location: [facility] CC: Dr. Italia East MD Photographer Model: Signed Normal [facility] Cardiology Visit Reporton Cardiology Visit Report [facility] [address] [place] [address] OFFICE VISIT Date of Service: 08/04/24 MR#: [id number] Acct: [id number] Name: ALVA BARNES JULIET Rep #: [id number] : 1975 Provider: Dr. 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 She initially was seen at the [facility] and on September 18, 1983 underwent a walk test and shunt from the ascending aorta to the right pulmonary artery. 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 This was a complete repair in the creation of a continuity between the branch pulmonary artery with an 80 mm T graft and placement of a 26 mm right ventricular to pulmonary artery homograft. 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 Her echocardiogram in 2016 had demonstrated an ejection fraction of 45% moderate to severely dilated aortic root pulmonary valve prosthesis appeared to be well-seated with normal gradients. She had a number of echocardiograms in 2016, 2017, and 2018. Her echocardiogram from August 2019 demonstrated evidence of patch closure of the ASD and VSD, the Chikis valve implantation which was stable normal ventricular size and his estimated ejection fraction of 45 to 50% the peak and mean gradient across the Chikis pulmonic valve was 9 mm and 4 mm. There was no change compared to the prior study. She did have an echocardiogram performed in July 2021 which was her last echocardiogram demonstrating an ejection fraction of 45% with global hypokinesis mild to moderate aortic regurgitation and grossly normal bioprosthetic pulmonic valve. The ascending aorta was mildly enlarged. She had also had unexplained syncope since 2011 and has had various evaluations including placement of a Linq device which did not demonstrate any significant abnormality. The device has since then obtained end-of-life. She does not want this out at the present time. She overall is asymptomatic and has been on medication including titrating her diuretics as per her mother who keeps a very close eye on her. She denies any dizziness or diaphoresis she has not had any recent near syncopal episodes. She has been checking her blood pressures at home and they have been in the normotensive range. She has a copy of this to corroborate her blood pressures. Intake Vital Signs 06/19/23 11:05 03/27/24 09:39 08/04/24 10:25 Height 5 ft 3 in 5 ft 3 in 5 ft 3 in Weight: 129 lb BMI 22.8 BP 114/65 Blood Pressure Location Lt brachial Position Sitting Respiration 16 Pulse 78 Pulse Source Monitor Intake Visit Reasons: 1 y fu w CAPACITY PLANNING ANALYST per CAPACITY PLANNING ANALYST Retail Beauty Specialist Required: No Accompanied by: Mother Is patient in pain?: No Allergies codeine Allergy (Severe, Verified 08/04/24 10:29) Anaphylaxis morphine Allergy (Severe, Verified 08/04/24 10:29) Anaphylaxis ondansetron Allergy (Severe, Verified 08/04/24 10:29) Anaphylaxis erythromycin base Allergy (Verified 08/04/24 10:29) Hives Sulfa (Sulfonamide Antibiotics) Allergy (Verified 08/04/24 10:29) Rash epinephrine Adverse Reaction (Verified 08/04/24 10:29) Other Medications ???Medication ???Instructions ???Recorded ???Confirmed ???Type albuterol sulfate 90 mcg/actuation 2 puff inhalation Q6H PRN 08/04/24 History aerosol inhaler aspirin 81 mg tablet,delayed 81 mg PO DAILY 06/05/23 08/04/24 H istory release (Adult Aspirin Regimen) calcitriol 0.25 mcg capsule 0.25 mcg PO DAILY 06/05/23 5 History calcium carbonate 500 mg PO DAILY 06/05/23 08/04/24 History cholecalciferol (vitamin D3) 50 50 mcg PO DAILY 06/05/23 08/04/24 History mcg (2,000 unit) capsule fenofibrate 54 mg tablet 54 mg PO DAILY 06/05/23 08/04/24 H istory ferrous sulfate 325 mg (65 mg 325 mg PO DAILY 06/05/23 08/04/24 History iron) tablet fexofenadine 60 mg tablet 60 mg PO BID 06/05/23 08/04/24 His tory magnesium oxide 250 mg PO DAILY 06/05/23 08/04/24 History olanzapine 10 mg tablet (Zyprexa) 10 mg PO QHS 06/05/23 08/04/24 Hi story omeprazole 20 mg capsule,delayed 20 mg PO DAILY 06/05/23 08/04/24 H istory (more content not included)... Normal [facility] Absolute lymphocyte countOrd ered By: Italia East on 06-16-2024 Lymphocytes Auto (Unsp spec) [#/Vol] 1.08 10*3/uL 0.83-4.51 [facility] Absolute neutrophil countOrd ered By: Italia East on 06-16-2024 Neutrophils (Bld) [#/Vol] 7.4 10*3/uL 2.0-7.7 [facility] Anion gap in Serum or Plasma Ordered By: Italia East on 06-16-2024 Anion gap [Moles/Vol] 13 mmol/L 5-15 [facility] Automated lymphocyte count a s percentage of total leukocytesOrdered By: Italia East on 06-16-2024 Lymphocytes/100 WBC Auto (Unsp spec) 11.6 % Low 19-41 [facility] BUN/creatinine ratioOrdered By: [facility] Kita on 06-16-2024 Urea nitrogen/Creatinine [Mass ratio] 21.2 mg/mg High 10-20 [facility] Basophil percentageOrdered B y: Italia East on 06-16-2024 Basophils/100 WBC (Bld) 0.6 % 0-1 [facility] Bilirubin, totalOrdered By: [facility] on 06-16-2024 Bilirubin [Mass/Vol] 0.31 mg/dL 0.00-1.30 [facility] CBC W/Diff, Automatedon Absolute Lymph 1.08 X10 3/uL Normal 0.83-4.51 [facility] Comment on above: Order Comment: Inter face Comments:Screening labsOrder Date: 05/29/24Order Info: [id number] - CBCDComments: Screening labs Performed By: #### L 501.9520, L506.0400, L500.4100, L100.0100, L500.4050, L509.1000 ####[facility] [address] [place], [address] Absolute Neut 7.4 X10 3/uL Normal 2.0-7.7 [facility] Comment on above: Order Comment: Inter face Comments:Screening labsOrder Date: 05/29/24Order Info: [id number] - CBCDComments: Screening labs Performed By: #### L 501.9520, L506.0400, L500.4100, L100.0100, L500.4050, L509.1000 ####[facility] [address] [place], [address] Basophils/100 WBC (Bld) 0.6 % Normal 0-1 [facility] Comment on above: Order Comment: Inter face Comments:Screening labsOrder Date: 05/29/24Order Info: [id number] - CBCDComments: Screening labs Performed By: #### L 501.9520, L506.0400, L500.4100, L100.0100, L500.4050, L509.1000 ####[facility] [address] [place], [address] Eosinophils/100 WBC (Bld) 2.1 % Normal 0-5 [facility] Comment on above: Order Comment: Inter face Comments:Screening labsOrder Date: 05/29/24Order Info: [id number] - CBCDComments: Screening labs Performed By: #### L 501.9520, L506.0400, L500.4100, L100.0100, L500.4050, L509.1000 ####[facility] [address] [place], [address] Erythrocyte distribution width (RBC) [Ratio] 12.7 % Normal 11.6-14.6 [facility] Comment on above: Order Comment: Inter face Comments:Screening labsOrder Date: 05/29/24Order Info: [id number] - CBCDComments: Screening labs Performed By: #### L 501.9520, L506.0400, L500.4100, L100.0100, L500.4050, L509.1000 ####[facility] [address] [place], [address] Hematocrit (Bld) [Volume fraction] 39.5 % Normal 37-47 [facility] Comment on above: Order Comment: Inter face Comments:Screening labsOrder Date: 05/29/24Order Info: [id number] - CBCDComments: Screening labs Performed By: #### L 501.9520, L506.0400, L500.4100, L100.0100, L500.4050, L509.1000 ####[facility] [address] [place], [address] Hemoglobin (Bld) [Mass/Vol] 12.8 g/dL Normal 12.0-15.0 [facility] Comment on above: Order Comment: Inter face Comments:Screening labsOrder Date: 05/29/24Order Info: [id number] - CBCDComments: Screening labs Performed By: #### L 501.9520, L506.0400, L500.4100, L100.0100, L500.4050, L509.1000 ####[facility] [address] [place], [address] IG% 0.300 Normal 0.0-0.9 [facility] Comment on above: Order Comment: Inter face Comments:Screening labsOrder Date: 05/29/24Order Info: [id number] - CBCDComments: Screening labs Result Comment: IG% - Immature Granulocytes (promyelocytes, myelocytes and metamyelocytes) > 1% indicates that a LEFT SHIFT is Present. Performed By: #### L 501.9520, L506.0400, L500.4100, L100.0100, L500.4050, L509.1000 ####[facility] [address] [place], [address] Lymphocytes/100 WBC (Bld) 11.6 % Low 19-41 [facility] Comment on above: Order Comment: Inter face Comments:Screening labsOrder Date: 05/29/24Order Info: [id number] - CBCDComments: Screening labs Performed By: #### L 501.9520, L506.0400, L500.4100, L100.0100, L500.4050, L509.1000 ####[facility] [address] [place], [address] MCH (RBC) [Entitic mass] 29.7 pg Normal 27.0-32.0 [facility] Comment on above: Order Comment: Inter face Comments:Screening labsOrder Date: 05/29/24Order Info: [id number] - CBCDComments: Screening labs Performed By: #### L 501.9520, L506.0400, L500.4100, L100.0100, L500.4050, L509.1000 ####[facility] [address] [place], [address] MCHC (RBC) [Mass/Vol] 32.4 g/dL Normal 32-36 [facility] Comment on above: Order Comment: Inter face Comments:Screening labsOrder Date: 05/29/24Order Info: 0184-1 - CBCDComments: Screening labs Performed By: #### L 501.9520, L506.0400, L500.4100, L100.0100, L500.4050, L509.1000 ####[facility] [address] [facility] [place], [address] MCV (RBC) [Entitic vol] 91.6 fL Normal 81-99 [facility] Comment on above: Order Comment: Inter face Comments:Screening labsOrder Date: 05/29/24Order Info: [id number] - CBCDComments: Screening labs Performed By: #### L 501.9520, L506.0400, L500.4100, L100.0100, L500.4050, L509.1000 ####[facility] [address] [facility] [place], [address] Monocytes/100 WBC (Bld) 6.7 % Normal 0-10 [facility] Comment on above: Order Comment: Inter face Comments:Screening labsOrder Date: 05/29/24Order Info: 0184-1 - CBCDComments: Screening labs Performed By: #### L 501.9520, L506.0400, L500.4100, L100.0100, L500.4050, L509.1000 ####[facility] [address] [facility] [place], [address] Neutrophils/100 WBC (Bld) 78.7 % High 47-70 [facility] Comment on above: Order Comment: Inter face Comments:Screening labsOrder Date: 05/29/24Order Info: 0184-1 - CBCDComments: Screening labs Performed By: #### L 501.9520, L506.0400, L500.4100, L100.0100, L500.4050, L509.1000 ####[facility] [address] [place], [address] Nucleated RBC (Bld) [#/Vol] 0 10*3/uL Normal 0-5 [facility] Comment on above: Order Comment: Inter face Comments:Screening labsOrder Date: 05/29/24Order Info: 0184-1 - CBCDComments: Screening labs Performed By: #### L 501.9520, L506.0400, L500.4100, L100.0100, L500.4050, L509.1000 ####[facility] [address] [place], [address] Platelet mean volume (Bld) [Entitic vol] 11.3 fL Normal 6.2-12.0 [facility] Comment on above: Order Comment: Inter face Comments:Screening labsOrder Date: 05/29/24Order Info: [id number] - CBCDComments: Screening labs Performed By: #### L 501.9520, L506.0400, L500.4100, L100.0100, L500.4050, L509.1000 ####[facility] [address] [place], [address] Platelets (Bld) [#/Vol] 194 10*3/uL Normal 150-450 [facility] Comment on above: Order Comment: Inter face Comments:Screening labsOrder Date: 05/29/24Order Info: 0184-1 - CBCDComments: Screening labs Performed By: #### L 501.9520, L506.0400, L500.4100, L100.0100, L500.4050, L509.1000 ####[facility] [address] [place], [address] RBC (Bld) [#/Vol] 4.31 10*6/uL Normal 4.2-5.4 [facility] Comment on above: Order Comment: Inter face Comments:Screening labsOrder Date: 05/29/24Order Info: [id number] - CBCDComments: Screening labs Performed By: #### L 501.9520, L506.0400, L500.4100, L100.0100, L500.4050, L509.1000 ####[facility] [address] [place], [address] RDW SD 42.4 fl Normal 35.1-43.9 [facility] Comment on above: Order Comment: Inter face Comments:Screening labsOrder Date: 05/29/24Order Info: [id number] - CBCDComments: Screening labs Performed By: #### L 501.9520, L506.0400, L500.4100, L100.0100, L500.4050, L509.1000 ####[facility] [address] [place], [place], [id number] WBC (Bld) [#/Vol] 9.4 10*3/uL Normal 4.4-11.0 [facility] Comment on above: Order Comment: Inter face Comments:Screening labsOrder Date: 05/29/24Order Info: [id number] - CBCDComments: Screening labs Performed By: #### L 501.9520, L506.0400, L500.4100, L100.0100, L500.4050, L509.1000 ####[facility] [address] [place], [place], [id number] Calculated very low density lipoprotein (VLDL) cholesterol measurementOrdered By: Italia East on 06-16-2024 Calculated very low density lipoprotein (VLDL) cholesterol measurement 33 mg/dL [facility] VLDL Cholesterol 33 mg/dL [facility] Carbon dioxide, total [Moles /volume] in Central venous bloodOrdered By: Italia East on 06-16-2024 CO2 [Moles/Vol] 24.2 mmol/L 21.0-32.0 [facility] Chloride assayOrdered By: Stormy East on 06-16-2024 Chloride [Moles/Vol] 99 mmol/L 98-108 [facility] Comprehensive Metabolic Prof ilon 06-16-2024 AST [Catalytic activity/Vol] 22 U/L Normal <=31 [facility] Comment on above: Order Comment: Inter face Comments:Screening labsOrder Date: 05/29/24Order Info: [id number] - CMPOrder Info: [id number] - LIPIDComments: Screening labsOrder Info: [id number] - TSHOrder Info: 3024-7 - M2XWsmkpphqe labs Performed By: #### L 501.9520, L506.0400, L500.4100, L100.0100, L500.4050, L509.1000 ####[facility] [address] [place], [address] Eosinophil percentageOrdered By: Italia East on 06-16-2024 Eosinophils/100 WBC (Bld) 2.1 % 0-5 [facility] Erythrocyte distribution wid th ratioOrdered By: Italia East on 06-16-2024 Erythrocyte distribution width (RBC) [Ratio] 12.7 % 11.6-14.6 [facility] Erythrocyte distribution wid th standard deviationOrdered By: Italia East on 06-16-2024 Erythrocyte distribution width (RBC) [Entitic vol] 42.4 fL 35.1-43.9 [facility] Erythrocyte distribution width (RBC) [Ratio] 42.4 fl 35.1-43.9 [facility] GFR/1.73 sq M.predicted kalpesh g non-blacks MDRD (S/P/Bld) [Vol rate/Area]Ordered By: Italia East on 06-16-2024 Estimated GFR (MDRD) Non-Af Amer 45 Low >60 [facility] Comment on above: mL/min/1.73m2 CKD-EP I Creatinine Equation (2020) Glomerular filtration rate ( GFR) estimation/1.73 sq m using serum, plasma, or whole bOrdered By: Italia East on 06-16-2024 GFR/1.73 sq M.predicted among non-blacks MDRD (S/P/Bld) [Vol rate/Area] 45 mL/min/{1.73_m2} Low >60 [facility] Comment on above: mL/min/1.73m2 CKD-EP I Creatinine Equation (2020) Hematocrit Auto (Bld) [Volum e fraction]Ordered By: Italia East on 06-16-2024 Hematocrit (Bld) [Volume fraction] 39.5 % 37-47 [facility] Hemoglobin measurementOrdere d By: Italia East on 06-16-2024 Hemoglobin (Bld) [Mass/Vol] 12.8 g/dL 12.0-15.0 [facility] Immature granulocytes/100 WB C Auto (Bld)Ordered By: Italia East on 06-16-2024 Immature granulocytes/100 WBC (Bld) 0.300 % 0.0-0.9 [facility] Comment on above: IG% - Immature Granu locytes (promyelocytes, myelocytes and metamyelocytes) > 1% indicates that a LEFT SHIFT is Present. LDL calc ser/plasOrdered By: Italia East on 06-16-2024 Cholesterol in LDL [Mass/Vol] 117 mg/dL [facility] Comment on above: Jwvgsgdrln=283-863 m g/dL & Higher Fjzf=847 mg/dL or greater LDL Cholesterol, Calculated 117 mg/dL [facility] Comment on above: Qgwjskovvn=505-383 m g/dL & Higher Wuil=679 mg/dL or greater Laboratory - Chemistry and C hemistry - challengeOrdered By: Italia East on 06-16-2024 AST [Catalytic activity/Vol] 22 U/L <32 [facility] Lipid Profileon 06-16-2024 CHOL:HDL 4.81 Normal [facility] Comment on above: Order Comment: Inter face Comments:Screening labsOrder Date: 05/29/24Order Info: [id number] - CMPOrder Info: [id number] - LIPIDComments: Screening labsOrder Info: [id number] - TSHOrder Info: [id number] - T4F Performed By: #### L 501.9520, L506.0400, L500.4100, L100.0100, L500.4050, L509.1000 ####[facility] [address] [place], [address] Cholesterol [Mass/Vol] 189 mg/dL Normal <=200 [facility] Comment on above: Order Comment: Inter face Comments:Screening labsOrder Date: 05/29/24Order Info: [id number] - CMPOrder Info: [id number] - LIPIDComments: Screening labsOrder Info: [id number] - TSHOrder Info: 7 - T4F Result Comment: Chol esterol level, Desirable <200 mg/dL Borderline high cholesterol 200-239 mg/dL High cholesterol >=240 mg/dL Recommendations of the NCEP Adult Treatment Panel for the following risk-cutoff thresholds for the [place] population. Performed By: #### L 501.9520, L506.0400, L500.4100, L100.0100, L500.4050, L509.1000 ####[facility] [address] [place], [address] Cholesterol in HDL [Mass/Vol] 39 mg/dL Low [facility] Comment on above: Order Comment: Inter face Comments:Screening labsOrder Date: 05/29/24Order Info: [id number] - CMPOrder Info: [id number] - LIPIDComments: Screening labsOrder Info: [id number] - TSHOrder Info: [id number] - T4F Result Comment: [place] onal Cholesterol Education Program (NCEP) guidelines: <40 mg/dL: Low HDL-cholesterol (major risk factor for CHD) >= 60 mg/dL: High HDL-cholesterol (negative risk factor for CHD) HDL-cholesterol is affected by a number of factors, e.g. smoking, exercise, hormones, sex and age. Performed By: #### L 501.9520, L506.0400, L500.4100, L100.0100, L500.4050, L509.1000 ####[facility] [address] [place], [address] Cholesterol in LDL [Mass/Vol] 117 mg/dL Normal [facility] Comment on above: Order Comment: Inter face Comments:Screening labsOrder Date: 05/29/24Order Info: 0786-1 - CMPOrder Info: [id number] - LIPIDComments: Screening labsOrder Info: 3015-06 - TSHOrder Info: 3023-10 - T4F Result Comment: Bord lgwmst=330-457 mg/dL Higher Hsxo=712 mg/dL or greater Performed By: #### L 501.9520, L506.0400, L500.4100, L100.0100, L500.4050, L509.1000 ####[facility] [address] [place], [address] Cholesterol in VLDL [Mass/Vol] 33 mg/dL Normal 5-40 [facility] Comment on above: Order Comment: Inter face Comments:Screening labsOrder Date: 05/29/24Order Info: 785-04 - CMPOrder Info: [id number] - LIPIDComments: Screening labsOrder Info: 3015-06 - TSHOrder Info: 3023-10 - T4F Performed By: #### L 501.9520, L506.0400, L500.4100, L100.0100, L500.4050, L509.1000 ####[facility] [address] [place], [address] Triglyceride [Mass/Vol] 166 mg/dL Normal [facility] Comment on above: Order Comment: Inter face Comments:Screening labsOrder Date: 05/29/24Order Info: 785-04 - CMPOrder Info: [id number] - LIPIDComments: Screening labsOrder Info: 3015-06 - TSHOrder Info: 3023-10 - T4F Result Comment: The drugs N-Acetylcysteine and Metamizole may falsely depress this assay. Normal range: <150 mg/dL Borderline High: 150-199 mg/dL High: 200-499 mg/dL Very High: >500 mg/dL Performed By: #### L 501.9520, L506.0400, L500.4100, L100.0100, L500.4050, L509.1000 ####[facility] [address] [place], [address] Lymphocytes Auto (Unsp spec) [#/Vol]Ordered By: Vinhletty Kita on 06-16-2024 Lymphocytes (Bld) [#/Vol] 1.08 10*3/uL 0.83-4.5 1 [facility] Lymphocytes/100 WBC Auto (Un sp spec)Ordered By: Vinhletty Kita on 06-16-2024 Lymphocytes/100 WBC (Bld) 11.6 % Low 19-41 [facility] MCV (mean corpuscular volume ) determinationOrdered By: Vinhletty Kita on 06-16-2024 MCV (RBC) [Entitic vol] 91.6 fL 81-99 [facility] Mean corpuscular hemoglobin (MCH) determinationOrdered By: Italia East on 06-16-2024 MCH (RBC) [Entitic mass] 29.7 pg 27.0-32.0 [facility] Mean corpuscular hemoglobin concentration (MCHC) determinationOrdered By: Italia East on 06-16-2024 MCHC (RBC) [Mass/Vol] 32.4 g/dL 32-36 [facility] Mean platelet volume determi nationOrdered By: Vinhletty Kita on 06-16-2024 Platelet mean volume (Bld) [Entitic vol] 11.3 fL 6.2-12.0 [facility] Monocyte percentageOrdered B y: Vinhletty Kita on 06-16-2024 Monocytes/100 WBC (Bld) 6.7 % 0-10 [facility] Neutrophil percentageOrdered By: Italia East on 06-16-2024 Neutrophils/100 WBC (Bld) 78.7 % High 47-70 [facility] Nucleated red blood cell per centageOrdered By: Italia East on 06-16-2024 Nucleated RBC/100 WBC (Bld) [Ratio] 0 % 0-5 [facility] PTH intactOrdered By: Italia East on 06-16-2024 Parathyroid Hormone (Intact) 10 pg/mL Low 11- [facility] PTHINon 06-16-2024 PTH 10 pg/mL Low 11 [facility] Comment on above: Order Comment: Inter face Comments:Screening labsOrder Date: 05/29/24Order Info: [id number] - PTHINComments: Screening labs Performed By: #### L 501.9463, L506.0400, L500.4100, L100.0100, L500.4050, L509.1000 ####[facility] [address] [place], [address] Platelet countOrdered By: Stormy East on 06-16-2024 Platelets (Bld) [#/Vol] 194 10*3/uL 150-450 [facility] Potassium (Unsp spec) [Mass/ Vol]Ordered By: Italia East on 06-16-2024 Potassium [Moles/Vol] 4.5 mmol/L 3.3-5.1 [facility] Potassium measurement (mass/ volume)Ordered By: Italia East on 06-16-2024 Potassium (Unsp spec) [Mass/Vol] 4.5 mmol/L 3.3-5.1 [facility] RBC Auto (Bld) [#/Vol]Ordere d By: Italia East on 06-16-2024 RBC (Bld) [#/Vol] 4.31 10*6/uL 4.2-5.4 [facility] Screening total cholesterol/ high density lipoprotein (HDL) cholesterol ratioOrdered By: Italia East on 06-16-2024 Cholesterol.total/Cholest andriy in HDL [Mass ratio] 4.81 {ratio} [facility] Serum creatinine measurement (mass/volume)Ordered By: Italia East on 06-16-2024 Creatinine [Mass/Vol] 1.41 mg/dL High 0.70-1.20 [facility] Serum globulin measurementOr dered By: Italia East on 06-16-2024 Globulin (S) [Mass/Vol] 2.9 g/dL 2.2-4.2 [facility] Serum glucose measurement (m ass/volume)Ordered By: Italia East on 06-16-2024 Glucose [Mass/Vol] 113 mg/dL High 70-99 [facility] Serum or plasma alanine may otransferase (ALT) measurementOrdered By: Italia East on 06-16-2024 ALT [Catalytic activity/Vol] 18 U/L <35 [facility] Serum or plasma albumin aundrea urement (mass/volume)Ordered By: Italia East on 06-16-2024 Albumin [Mass/Vol] 4.6 g/dL 3.5-5.0 [facility] Serum or plasma albumin/glob ulin mass ratioOrdered By: Italia East on 06-16-2024 Albumin/Globulin [Mass ratio] 1.6 {ratio} 0.9-2.4 [facility] Serum or plasma alkaline nágel sphatase measurementOrdered By: Italia East on 06-16-2024 ALP [Catalytic activity/Vol] 60 U/L 35-104 [facility] Serum or plasma calcium aundrea urement (mass/volume)Ordered By: Italia East on 06-16-2024 Calcium [Mass/Vol] 9.3 mg/dL 7.6-11.0 [facility] Serum or plasma cholesterol in HDL measurement (mass/volume)Ordered By: Italia East on 06-16-2024 Cholesterol in HDL [Mass/Vol] 39 mg/dL Low >40 [facility] Comment on above: National Cholesterol Education Program (NCEP) guidelines:<40 mg/dL: Low HDL-cholesterol (major risk factor for CHD)>= 60 mg/dL: High HDL-cholesterol (negative risk factor for CHD)HDL-cholesterol is affected by a number of factors, e.g. smoking, exercise, hormones, sex and age. Serum or plasma cholesterol measurement (mass/volume)Ordered By: Italia East on 06-16-2024 Cholesterol [Mass/Vol] 189 mg/dL <201 [facility] Comment on above: Cholesterol level, D esirable <200 mg/dLBorderline high cholesterol 200-239 mg/dLHigh cholesterol >=240 mg/dLRecommendations of the NCEP Adult Treatment Panel for the following risk-cutoff thresholds for the [place] population. Serum or plasma urea nitroge n measurement (mass/volume)Ordered By: Italia East on 06-16-2024 Urea nitrogen [Mass/Vol] 30 mg/dL High 4-19 [facility] Sodium levelOrdered By: Vinh East on 06-16-2024 Sodium [Moles/Vol] 136 mmol/L 133-145 [facility] T4 Free Directon 06-16-2024 T4 FREE DIRECT 1.80 ng/dL High 0.76-1.46 [facility] Comment on above: Order Comment: Inter face Comments:Screening labsOrder Date: 05/29/24Order Info: 0786-1 - CMPOrder Info: [id number] - LIPIDComments: Screening labsOrder Info: 3 - TSHOrder Info: 7 - P6KDyhkkryrv labs Performed By: #### L 501.9520, L506.0400, L500.4100, L100.0100, L500.4050, L509.1000 ####[facility] [address] [place], [address] T4 freeOrdered By: Italia orozco on 06-16-2024 Free T4 [Mass/Vol] 1.80 ng/dL High 0.76-1.46 [facility] TSH DL <= 0.005 mIU/L QnOrde red By: Italia East on 06-16-2024 Thyroid Stimulating Hormone (TSH) 2.130 uIU/mL 0.300-4.200 [facility] TSH Qn 2.130 uIU/mL 0.300-4.200 [facility] Thyroid Stim Hormone (TSH)on 06-16-2024 TSH 2.130 uIU/mL Normal 0.300-4.200 [facility] Comment on above: Order Comment: Inter face Comments:Screening labsOrder Date: 05/29/24Order Info: 0786-1 - CMPOrder Info: [id number] - LIPIDComments: Screening labsOrder Info: 3015-06 - TSHOrder Info: 7 - T4F Performed By: #### L 501.9520, L506.0400, L500.4100, L100.0100, L500.4050, L509.1000 ####[facility] [address] [place], [place], [id number] Total proteinOrdered By: Krystal East on 06-16-2024 Protein [Mass/Vol] 7.4 g/dL 5.9-8.4 [facility] Triglycerides measurementOrd ered By: Italia East on 03-04-2025 Triglyceride [Mass/Vol] 166 mg/dL <199 [facility] Comment on above: The drugs N-Acetylcy steine and Metamizole may falsely depress this assay. Normal range: <150 mg/dLBorderline High: 150-199 mg/dLHigh: 200-499 mg/dLVery High: >500 mg/dL White blood cell (WBC) count Ordered By: Italia East on 06-16-2024 WBC (Bld) [#/Vol] 9.4 10*3/uL 4.4-11.0 [facility] Pulmonary Visit Reporton Pulmonary Visit Report [facility] [address] [place] [address] OFFICE VISIT Date of Service: 03/27/24 MR#: [id number] Acct: [id number] Name: ALVA BARNES Rep #: [id number] : 1975 Provider: Dr. Clifton Villegas DO Age/Sex: 49/F Location: [facility] Status: Signed Assessment and Plan Assessment and Plan (1) CECIL (obstructive sleep apnea): Status: Chronic Plan: The patient has a known history of obstructive sleep apnea, but has remained compliant with nocturnal auto titrating CPAP therapy. There is no need for any additional changes in her current pressure support. The patient continues to benefit clinically from its use. (2) Asthma: Status: Chronic Plan: The patient has a longstanding history of asthma, which has remained symptomatically well-controlled with the use of Breo, Singulair and as needed albuterol. This regimen will be continued without change. The patient was advised to contact our office with any worsening in her breathing quality and/or increasing reliance on her short acting beta agonist. 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 She appears well compensated from a respiratory perspective at the present time. Will continue to monitor her longitudinally from a clinical perspective. Plan Details Follow Up: 6 Months HPI HPI Comments Details: The patient is a 49-year-old female who presents to the clinic today due to a history of pulmonary atresia. Her mother is present at today's office visit. The patient was previously under the care of a pulmonary provider in [place], [place], until her relocation here last year. 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 Her medical history also includes a diagnosis of bipolar disorder, asthma and obstructive sleep apnea. The patient is prescribed nocturnal auto titrating CPAP therapy. With regard to her asthma, the patient has been maintained on Breo, Singulair and as needed albuterol. The patient is currently established in the cardiology clinic with Dr. Hunter. In general, the patient has been well compensated from a respiratory perspective. She has remained compliant with the use of Breo Ellipta and reported exceedingly infrequent use of her rescue inhaler. She has not been treated for any recent exacerbations. Poor air quality tends to be a trigger for decompensation in her asthma control. She has remained compliant with nocturnal CPAP therapy and continues to report feeling rested upon awakening in the morning. She denies any significant daytime hypersomnolence. She currently utilizes a fullface mask. She denies any overt chest tightness or wheezing. Her current CPAP machine is approximately 2 years old. The patient's nocturnal compliance report was personally reviewed at today's office visit. Over the last 30 days, the patient has demonstrated an overall compliance rate of 100%. She is currently utilizing her PAP therapy on average 8.5 hours per night. Residual AHI was noted to be 0.8. Her last surface echocardiogram completed in July 2023 demonstrated normal LV size with an ejection fraction of 45%, stage I diastolic dysfunction and pulmonary artery systolic pressure estimated to be 40 mmHg. Intake Vital Signs 06/19/23 11:05 01/10/24 12:29 03/27/24 09:39 Height 5 ft 3 in 5 ft 3 in 5 ft 3 in Weight: 123 lb BMI 21.7 BP 103/69 Blood Pressure Location Lt brachial Position Sitting Respiration 20 H Pulse 80 Pulse Source Monitor Temp 98.0 F Temperature Source Temporal Artery Pulse Oximetry (%) 94 Oxygen Delivery Method room air Intake Visit Reasons: Pulmonary [employer] Required: No DME Vendor: none Accompanied by: Mother Allergies codeine Allergy (Severe, Verified 03/27/24 11:10) Anaphylaxis morphine Allergy (Severe, Verified 03/27/24 11:10) Anaphylaxis ondansetron Allergy (Severe, Verified 03/27/24 11:10) Anaphylaxis erythromycin base Allergy (Verified 03/27/24 11:10) Hives Sulfa (Sulfonamide Antibiotics) Allergy (Verified 03/27/24 11:10) Rash epinephrine Adverse Reaction (Verified 03/27/24 11:10) Other Medications ???Medication ???Instructions ???Recorded ???Confirmed ???Type albuterol sulfate 90 mcg/actuation 2 puff inhalation Q6H PRN 06/05/23 03/27/24 History aerosol inhaler aspirin 81 mg tablet,delayed 81 mg PO DAILY 06/05/23 03/27/24 History release (Adult Aspirin Regimen) calcitriol 0.25 mcg capsule 0.25 mcg PO DAILY 06/05/23 03/27/24 History calciu (more content not included)... Normal [facility] Comprehensive Metabolic Prof minda 02-20-2024 Albumin [Mass/Vol] 4.1 g/dL Normal 3.2-5.0 [facility] Comment on above: Order Comment: Order Date: 01/07/24 Order Info: 0786-1 - CMP Order Info: 3016-3 - TSH Performed By: #### L 501.9520, L509.1000, L500.4050, L501.9985 #### [facility] [address] [place], [address] Albumin/Globulin [Mass ratio] 1.2 {ratio} Normal 0.9-2.4 [facility] Comment on above: Order Comment: Order Date: 01/07/24 Order Info: 0786-1 - CMP Order Info: 3016-3 - TSH Performed By: #### L 501.9520, L509.1000, L500.4050, L501.9985 #### [facility] [address] [place], [address] ALK P 56 U/L Normal 45-117 [facility] Comment on above: Order Comment: Order Date: 01/07/24 Order Info: 0786-1 - CMP Order Info: 3016-3 - TSH Performed By: #### L 501.9520, L509.1000, L500.4050, L501.9985 #### [facility] [address] [place], [address] ALT [Catalytic activity/Vol] 30 U/L Normal 13-56 [facility] Comment on above: Order Comment: Order Date: 01/07/24 Order Info: 0786-1 - CMP Order Info: 3 - TSH Performed By: #### L 501.9520, L509.1000, L500.4050, L501.9985 #### [facility] [address] [place], [address] AST [Catalytic activity/Vol] 23 U/L Normal 15-37 [facility] Comment on above: Order Comment: Order Date: 01/07/24 Order Info: 07 - CMP Order Info: 3 - TSH Performed By: #### L 501.9520, L509.1000, L500.4050, L501.9985 #### [facility] [address] [place], [address] Bilirubin [Mass/Vol] 0.50 mg/dL Normal 0.20-1.00 [facility] Comment on above: Order Comment: Order Date: 01/07/24 Order Info: 0786- - CMP Order Info: 3 - TSH Result Comment: For patients on eltrombopag therapy, use of Dimension [place] TBIL is not recommended. Performed By: #### L 501.9520, L509.1000, L500.4050, L501.9985 #### [facility] [address] [place], [address] BUN/CRE 20.0 RATIO Normal 10-20 [facility] Comment on above: Order Comment: Order Date: 01/07/24 Order Info: 0786-1 - CMP Order Info: 3 - TSH Performed By: #### L 501.9520, L509.1000, L500.4050, L501.9985 #### [facility] [address] [place], [address] CA,Total 8.9 mg/dL Normal 8.5-10.1 [facility] Comment on above: Order Comment: Order Date: 01/07/24 Order Info: 0786-1 - CMP Order Info: 3015-06 - TSH Performed By: #### L 501.9520, L509.1000, L500.4050, L501.9985 #### [facility] [address] [place], [address] Chloride [Moles/Vol] 103 mmol/L Normal 98-107 [facility] Comment on above: Order Comment: Order Date: 01/07/24 Order Info: 785-04 - CMP Order Info: 3015-06 - TSH Performed By: #### L 501.9520, L509.1000, L500.4050, L501.9985 #### [facility] [address] [place], [address] CO2 [Moles/Vol] 26.0 mmol/L Normal 21.0-32.0 [facility] Comment on above: Order Comment: Order Date: 01/07/24 Order Info: 0786 - CMP Order Info: 3015-06 - TSH Performed By: #### L 501.9520, L509.1000, L500.4050, L501.9985 #### [facility] [address] [place], [address] Creatinine [Mass/Vol] 1.55 mg/dL High 0.55-1.02 [facility] Comment on above: Order Comment: Order Date: 01/07/24 Order Info: 07 - CMP Order Info: 3015-06 - TSH Result Comment: The validity of the calculated GFR GFRAA in patients over 70 years has not been determined. Clinical correlation is essential. Performed By: #### L 501.9520, L509.1000, L500.4050, L501.9985 #### [facility] [address] [place], [address] EST GFR - AA 46 mL/min Low >60 [facility] Comment on above: Order Comment: Order Date: 01/07/24 Order Info: 0786-1 - CMP Order Info: 3016-3 - TSH Result Comment: Afri can [place] GFR Calc Performed By: #### L 501.9520, L509.1000, L500.4050, L501.9985 #### [facility] [address] [place], [address] GAP 6 Normal 5-15 [facility] Comment on above: Order Comment: Order Date: 01/07/24 Order Info: 0786-1 - CMP Order Info: 30109-15 - TSH Performed By: #### L 501.9520, L509.1000, L500.4050, L501.9985 #### [facility] [address] [place], [address] GFR/1.73 sq M.predicted among non-blacks MDRD (S/P/Bld) [Vol rate/Area] 38 mL/min/{1.73_m2} Low >60 [facility] Comment on above: Order Comment: Order Date: 01/07/24 Order Info: 0786-1 - CMP Order Info: 3016 - TSH Result Comment: Non- GFR Calc Performed By: #### L 501.9520, L509.1000, L500.4050, L501.9985 #### [facility] [address] [place], [address] Globulin (S) [Mass/Vol] 3.3 g/dL Normal 2.2-4.2 [facility] Comment on above: Order Comment: Order Date: 01/07/24 Order Info: 0786-1 - CMP Order Info: 3016-3 - TSH Performed By: #### L 501.9520, L509.1000, L500.4050, L501.9985 #### [facility] [address] [place], [address] Glucose [Mass/Vol] 112 mg/dL High 74-106 [facility] Comment on above: Order Comment: Order Date: 01/07/24 Order Info: 0786 - CMP Order Info: 3015-06 - TSH Result Comment: Fast ing Glucose result from 100 to 125 mg/dL suggests IMPAIRED HOMEOSTASIS per A.D.A. criteria. Performed By: #### L 501.9520, L509.1000, L500.4050, L501.9985 #### [facility] [address] [place], [address] Potassium [Moles/Vol] 4.4 mmol/L Normal 3.5-5.1 [facility] Comment on above: Order Comment: Order Date: 01/07/24 Order Info: 0786 - [facility] Order Info: 3015-06 - TSH Performed By: #### L 501.9520, L509.1000, L500.4050, L501.9985 #### [facility] [address] [place], [address] Sodium [Moles/Vol] 135 mmol/L Low 136-145 [facility] Comment on above: Order Comment: Order Date: 01/07/24 Order Info: 0786- - [facility] Order Info: 3015-06 - TSH Performed By: #### L 501.9520, L509.1000, L500.4050, L501.9985 #### [facility] [address] [place], [address] T PROT 7.4 g/dL Normal 6.4-8.2 [facility] Comment on above: Order Comment: Order Date: 01/07/24 Order Info: 0786 - [facility] Order Info: 3015-06 - TSH Performed By: #### L 501.9520, L509.1000, L500.4050, L501.9985 #### [facility] [address] [place], [address] Urea nitrogen [Mass/Vol] 31 mg/dL High 7-18 [facility] Comment on above: Order Comment: Order Date: 01/07/24 Order Info: 0786-1 - CMP Order Info: 3016-3 - TSH Performed By: #### L 501.9520, L509.1000, L500.4050, L501.9985 #### [facility] [address] [place], [address] Hemoglobin A1con 02-20-2024 HbA1c (Bld) [Mass fraction] 5.7 % High 3.8-5.6 [facility] Comment on above: Order Comment: Order Date: 01/07/24 Order Info: 4548-4 - A1C Result Comment: Norm al < 5.7 % Prediabetic 5.7 - 6.4 % Diabetic >or= 6.5 % Please note range changes. Performed By: #### L 501.9520, L509.1000, L500.4050, L501.9985 #### [facility] [address] [place], [address] PTHINon 02-20-2024 PTH 6.6 pg/mL Low 18.4-80.1 [facility] Comment on above: Order Comment: Order Date: 01/07/24 Order Info: 0565-1 - PTHIN Performed By: #### L 501.9520, L509.1000, L500.4050, L501.9985 #### [facility] [address] [place], [address] Thyroid Stim Hormone (TSH)on 02-20-2024 TSH 0.809 uIU/mL Normal 0.358-3.740 [facility] Comment on above: Order Comment: Order Date: 01/07/24Order Info: 0786-1 - CMPOrder Info: 3016-3 - TSH Performed By: #### L 501.9520, L509.1000, L500.4050, L501.9985 ####[facility] [address] [place], [address] Cardiology Visit Reporton Cardiology Visit Report [facility] [address] [place] [address] OFFICE VISIT Date of Service: 01/10/24 MR#: [id number] Acct: [id number] Name: ALVA BARNES Rep #: [id number] : 1975 Provider: Dr. 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 She initially was seen at the [facility] and on September 18, 1983 underwent a walk test and shunt from the ascending aorta to the right pulmonary artery. 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 This was a complete repair in the creation of a continuity between the branch pulmonary artery with an 80 mm T graft and placement of a 26 mm right ventricular to pulmonary artery homograft. 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 Her echocardiogram in 2015 had demonstrated an ejection fraction of 45% moderate to severely dilated aortic root pulmonary valve prosthesis appeared to be well-seated with normal gradients. She had a number of echocardiograms in 2016, 2017, and 2018. Her echocardiogram from August 2019 demonstrated evidence of patch closure of the ASD and VSD, the Chikis valve implantation which was stable normal ventricular size and his estimated ejection fraction of 45 to 50% the peak and mean gradient across the Chikis pulmonic valve was 9 mm and 4 mm. There was no change compared to the prior study. She did have an echocardiogram performed in July 2021 which was her last echocardiogram demonstrating an ejection fraction of 45% with global hypokinesis mild to moderate aortic regurgitation and grossly normal bioprosthetic pulmonic valve. The ascending aorta was mildly enlarged. She had also had unexplained syncope since 2011 and has had various evaluations including placement of a Linq device which did not demonstrate any significant abnormality. The device has since then obtained end-of-life. She overall is asymptomatic and has been on medication including titrating her diuretics as per her mother who keeps a very close eye on her. She denies any dizziness or diaphoresis she has not had any recent near syncopal episodes. She has been checking her blood pressures at home and they have been in the normotensive range. Her physical exam at this time demonstrates clear lung manriquez regular rate and rhythm 2/6 diastolic murmur noted left sternal border. No pedal edema is noted. 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 [employer] Specialist Required: No Accompanied by: Mother Is patient in pain?: No Allergies codeine Allergy (Severe, Verified 01/10/24 12:33) Anaphylaxis morphine Allergy (Severe, Verified 01/10/24 12:33) Anaphylaxis ondansetron Allergy (Severe, Verified 01/10/24 12:33) Anaphylaxis erythromycin base Allergy (Verified 01/10/24 12:33) Hives Sulfa (Sulfonamide Antibiotics) Allergy (Verified 01/10/24 12:33) Rash epinephrine Adverse Reaction (Verified 01/10/24 12:33) Other Medications ???Medication ???Instructions ???Recorded ???Confirmed ???Type albuterol sulfate 90 mcg/actuation 2 puff inhalation Q6H PRN 06/05/23 01/10/24 History aerosol inhaler amoxicillin 500 mg capsule 500 mg PO DAILY PRN 06/05/23 01/10/24 History aspirin 81 mg tablet,delayed 81 mg PO DAILY 06/05/23 01/10/24 History release (Adult Aspirin Regimen) calcitriol 0.25 mcg capsule 0.25 mcg PO DAILY 06/05/23 01/10/24 History calcium carbonate 500 mg PO DAILY 06/05/23 01/10/24 History cholecalciferol (vitamin D3) 50 50 mcg PO DAILY 06/05/23 01/10/24 History mcg (2,000 unit) capsule fenofibrate 54 mg tablet 54 mg PO DAILY 06/05/23 01/10/24 History ferrous sulfate 325 mg (65 mg 325 mg PO DAILY 06/05/23 01/10/24 History iron) tablet fexofenadine 60 mg tablet 60 mg PO BID 06/05/23 01/10/24 History fluticasone furoate 200 1 inh inhalation DAILY 06/05/23 01/10/24 History mcg-vilanterol 25 mcg/dose inhalation powder (Breo Ellipta) fl (more content not included)... Normal [facility] Hemoglobin A1con 10-29-2023 HbA1c (Bld) [Mass fraction] 5.5 % Normal 3.8-5.6 [facility] Comment on above: Order Comment: Order Date: 10/01/23 Order Info: [id number] - A1C Result Comment: Norm al < 5.7 % Prediabetic 5.7 - 6.4 % Diabetic >or= 6.5 % Please note range changes. Performed By: #### L [id number], [id number] #### [facility] [address] [place], [address] [id number] 10-29-2023 Ionized Calcium 4.73 mg/dL Normal 4.36-5.20 [facility] Comment on above: Performed By: #### L 501.2276 ####[facility] [address] [place], [address] Renal Profileon 10-29-2023 Albumin [Mass/Vol] 4.2 g/dL Normal 3.2-5.0 [facility] Comment on above: Order Comment: Order Date: 10/01/23 Order Info: 0790-1 - RENAL Performed By: #### L [id number], L500.3600 #### [facility] [address] [place], [address] BUN/CRE 16.7 RATIO Normal 10-20 [facility] Comment on above: Order Comment: Order Date: 10/01/23 Order Info: 0790- - RENAL Performed By: #### L [id number], [id number] #### [facility] [address] [place], [address] CA,Total 9.2 mg/dL Normal 8.5-10.1 [facility] Comment on above: Order Comment: Order Date: 10/01/23 Order Info: 0790- - RENAL Performed By: #### L [id number], [id number] #### [facility] [address] [place], [address] Chloride [Moles/Vol] 98 mmol/L Normal 98-107 [facility] Comment on above: Order Comment: Order Date: 10/01/23 Order Info: 0790 - RENAL Performed By: #### L [id number], [id number] #### [facility] [address] [place], [address] CO2 [Moles/Vol] 27.0 mmol/L Normal 21.0-32.0 [facility] Comment on above: Order Comment: Order Date: 10/01/23 Order Info: 0790- - RENAL Performed By: #### L [id number], [id number] #### [facility] [address] [place], [address] Creatinine [Mass/Vol] 1.44 mg/dL High 0.55-1.02 [facility] Comment on above: Order Comment: Order Date: 10/01/23 Order Info: [id number] - RENAL Result Comment: The validity of the calculated GFR GFRAA in patients over 70 years has not been determined. Clinical correlation is essential. Performed By: #### L [id number], [id number] #### [facility] [address] [place], [address] EST GFR - AA 50 mL/min Low >60 [facility] Comment on above: Order Comment: Order Date: 10/01/23 Order Info: [id number] - RENAL Result Comment: Afri can Slovak GFR Calc Performed By: #### L [id number], [id number] #### [facility] [address] [place], [address] GFR/1.73 sq M.predicted among non-blacks MDRD (S/P/Bld) [Vol rate/Area] 41 mL/min/{1.73_m2} Low >60 [facility] Comment on above: Order Comment: Order Date: 10/01/23 Order Info: [id number] - RENAL Result Comment: Non- GFR Calc Performed By: #### L [id number], [id number] #### [facility] [address] [place], [address] Glucose [Mass/Vol] 126 mg/dL High 74-106 [facility] Comment on above: Order Comment: Order Date: 10/01/23 Order Info: [id number] - RENAL Result Comment: Fast ing Glucose result greater than or equal to 126 mg/dL suggests DIABETES MELLITUS per A.D.A. criteria. Performed By: #### L [id number], [id number] #### [facility] [address] [place], [address] Phosphate [Mass/Vol] 3.4 mg/dL Normal 2.5-4.9 [facility] Comment on above: Order Comment: Order Date: 10/01/23 Order Info: 0790-1 - RENAL Performed By: #### L [id number], [id number] #### [facility] [address] [place], [address] Potassium [Moles/Vol] 4.3 mmol/L Normal 3.5-5.1 [facility] Comment on above: Order Comment: Order Date: 10/01/23 Order Info: 0790-1 - RENAL Performed By: #### L [id number], [id number] #### [facility] [address] [place], [address] Sodium [Moles/Vol] 132 mmol/L Low 136-145 [facility] Comment on above: Order Comment: Order Date: 10/01/23 Order Info: 0790-1 - RENAL Performed By: #### L [id number], [id number] #### [facility] [address] [place], [place], [id number] Urea nitrogen [Mass/Vol] 24 mg/dL High 7- [facility] Comment on above: Order Comment: Order Date: 10/01/23 Order Info: 0790-1 - RENAL Performed By: #### L [id number], L519.3606 #### [facility] [address] [place], [place], [address] Basophil percentageOrdered B y: Italia East on 07-01-2023 Bilirubin [Mass/Vol] 0.40 mg/dL 0.20-1.00 [facility] Comment on above: For patients on eltr ombopag therapy, use of Dimension [place] TBIL is not recommended. Chloride [Moles/Vol] 98 mmol/L 98-107 [facility] Glucose [Mass/Vol] 115 mg/dL 74-106 [facility] Comment on above: Fasting Glucose resu lt from 100 to 125 mg/dL suggests IMPAIRED HOMEOSTASIS per A.D.A. criteria. Potassium [Moles/Vol] 4.3 mmol/L 3.5-5.1 [facility] Protein [Mass/Vol] 8.1 g/dL 6.4-8.2 [facility] Sodium [Moles/Vol] 134 mmol/L 136-145 [facility] Culture, urineOrdered By: Stormy East on 07-01-2023 Bacteria identified Cx Nom (U) Culture exhibits no growth. [facility] - Chemistry and C hemistry - challengeOrdered By: Italia East on 07-01-2023 Albumin/Globulin [Mass ratio] 1.4 {ratio} 0.9-2.4 [facility] ALP [Catalytic activity/Vol] 58 U/L 45-117 [facility] ALT [Catalytic activity/Vol] 26 U/L 13-56 [facility] CO2 [Moles/Vol] 26.0 mmol/L 21.0-32.0 [facility] Globulin (S) [Mass/Vol] 3.4 g/dL 2.2-4.2 [facility] Urea nitrogen/Creatinine [Mass ratio] 20.2 mg/mg 10-20 [facility] No Panel InformationOrdered By: Italia East on 07-01-2023 Estimated GFR (MDRD) Amer 43 mL/min >60 [facility] Comment on above: GFR Calc Estimated GFR (MDRD) Non-Af Amer 36 mL/min >60 [facility] Comment on above: Non- GFR Calc Parathyroid Hormone (Intact) 13.3 pg/mL 18.4-80.1 [facility] Serum or plasma calcium aundrea urement (mass/volume)Ordered By: Italia East on 07-01-2023 Calcium [Mass/Vol] 9.4 mg/dL 8.5-10.1 [facility] Serum or plasma creatinine m easurement (mass/volume)Ordered By: Italia East on 07-01-2023 Creatinine [Mass/Vol] 1.63 mg/dL 0.55-1.02 [facility] Comment on above: The validity of the calculated GFR & GFRAA in patients over 70 years has not been determined. Clinical correlation is essential. Serum or plasma urea nitroge n measurement (mass/volume)Ordered By: Italia East on 07-01-2023 Urea nitrogen [Mass/Vol] 33 mg/dL - [facility] Thin prep Papanicolaou smear with manual screeningOrdered By: Italia East on 07-01-2023 Thin prep Papanicolaou smear with manual screening 4.7 g/dL 3.2-5.0 [facility] Thin prep Papanicolaou smear with manual screening 27 U/L 15-37 [facility] Thin prep Papanicolaou smear with manual screening 10 5-15 [facility] Whole blood hemoglobin A1c/t otal hemoglobin ratio (mass fraction)Ordered By: Italia East on 07-01-2023 HbA1c (Bld) [Mass fraction] 5.5 % 3.8-5.6 [facility] Comment on above: Normal < 5.7 % Predi abetic 5.7 - 6.4 % Diabetic >or= 6.5 % Please note range changes. Absolute lymphocyte countOrd ered By: Italia East on 06-05-2023 Lymphocytes Auto (Unsp spec) [#/Vol] 0.88 10*3/uL 0.83-4.51 [facility] Automated lymphocyte count a s percentage of total leukocytesOrdered By: Italia East on 06-05-2023 Lymphocytes/100 WBC Auto (Unsp spec) 13.0 % 19-41 [facility] Basophil percentageOrdered B y: Italia East on 06-05-2023 Basophils/100 WBC (Bld) 0.7 % 0-1 [facility] Bilirubin [Mass/Vol] 0.60 mg/dL 0.20-1.00 [facility] Comment on above: For patients on eltr ombopag therapy, use of [place] TBIL is not recommended. Chloride [Moles/Vol] 99 mmol/L 98-107 [facility] Cholesterol [Mass/Vol] 193 mg/dL <200 [facility] Comment on above: <200 mg/dL Desirable 200-240 mg/dL Borderline >240 mg/dL High Risk Eosinophils/100 WBC (Bld) 3.4 % 0-5 [facility] Glucose [Mass/Vol] 122 mg/dL 74-106 [facility] Comment on above: Fasting Glucose resu lt from 100 to 125 mg/dL suggests IMPAIRED HOMEOSTASIS per A.D.A. criteria. Hemoglobin (Bld) [Mass/Vol] 13.5 g/dL 12.0-15.0 [facility] Monocytes/100 WBC (Bld) 7.8 % 0-10 [facility] Neutrophils (Bld) [#/Vol] 5.1 10*3/uL 2.0-7.7 [facility] Neutrophils/100 WBC (Bld) 74.7 % 47-70 [facility] Potassium [Moles/Vol] 4.5 mmol/L 3.5-5.1 [facility] Protein [Mass/Vol] 7.4 g/dL 6.4-8.2 [facility] Sodium [Moles/Vol] 134 mmol/L 136-145 [facility] Triglyceride [Mass/Vol] 246 mg/dL <199 [facility] Comment on above: The drugs N-Acetylcy steine and Metamizole may falsely depress this assay.Serum Triglycerides Reference Interval Normal <150 mg/dL Borderline high 150 - 199 mg/dL High 200 - 499 mg/dL Very High > or = 500 mg/dL WBC (Bld) [#/Vol] 6.8 10*3/uL 4.4-11.0 [facility] Determination of erythrocyte mean corpuscular volume (MCV)Ordered By: Italia East on 06-05-2023 MCV (RBC) [Entitic vol] 91.2 fL 81-99 [facility] Erythrocyte distribution wid th ratioOrdered By: [facility] on 06-05-2023 Erythrocyte distribution width (RBC) [Ratio] 13.0 % 11.6-14.6 [facility] Erythrocyte distribution wid th standard deviationOrdered By: [facility] on 06-05-2023 Erythrocyte distribution width (RBC) [Entitic vol] 42.5 fL 35.1-43.9 [facility] Hematocrit Auto (Bld) [Volum e fraction]Ordered By: [facility] on 06-05-2023 Hematocrit (Bld) [Volume fraction] 41.3 % 37-47 [facility] Immature granulocytes/100 WB C Auto (Bld)Ordered By: [facility] on 06-05-2023 Immature granulocytes/100 WBC (Bld) 0.400 % 0.0-0.9 [facility] Comment on above: IG% - Immature Granu locytes (promyelocytes, myelocytes and metamyelocytes) > 1% indicates that a LEFT SHIFT is Present. Iron measurement (mass/mass) Or[facility]: [facility] 06-05-2023 Iron (Unsp spec) [Mass/Mass] 92 ug/dL 50-170 [facility] - Chemistry and C hemistry - challengeOrdered By: [facility] on 06-05-2023 Albumin/Globulin [Mass ratio] 1.2 {ratio} 0.9-2.4 [facility] ALP [Catalytic activity/Vol] 61 U/L 45-117 [facility] ALT [Catalytic activity/Vol] 22 U/L 13-56 [facility] Cholesterol in HDL [Mass/Vol] 33 mg/dL >40 [facility] Comment on above: The drugs N-Acetylcy steine and Metamizole may falsely depress this assay. Reference Range HDL <40 mg/dL Low HDL Cholesterol HDL >or= 60 mg/dL High HDL Cholesterol Cholesterol in LDL [Mass/Vol] 111 mg/dL 0-130 [facility] CO2 [Moles/Vol] 29.0 mmol/L 21.0-32.0 [facility] Ferritin [Mass/Vol] 305 ng/mL 8-252 [facility] Globulin (S) [Mass/Vol] 3.4 g/dL 2.2-4.2 [facility] Magnesium [Mass/Vol] 2.1 mg/dL 1.6-2.6 [facility] Urea nitrogen/Creatinine [Mass ratio] 18.1 mg/mg 10-20 [facility] - Hematology and Cell countsOrdered By: Italia East on 06-05-2023 MCH (RBC) [Entitic mass] 29.8 pg 27.0-32.0 [facility] MCHC (RBC) [Mass/Vol] 32.7 g/dL 32-36 [facility] Nucleated RBC/100 WBC (Bld) [Ratio] 0 % 0-5 [facility] Platelet mean volume (Bld) [Entitic vol] 11.9 fL 6.2-12.0 [facility] Platelets (Bld) [#/Vol] 164 10*3/uL 150-450 [facility] No Panel InformationOrdered By: Italia East on 06-05-2023 Estimated GFR (MDRD) Amer 57 mL/min >60 [facility] Comment on above: GFR Calc Estimated GFR (MDRD) Non-Af Amer 48 mL/min >60 [facility] Comment on above: Non- GFR Calc Free Triiodothyronine (T3) pg/dL 2.1 pg/mL 2.18-3.98 [facility] Parathyroid Hormone (Intact) 10.1 pg/mL 18.4-80.1 [facility] Total Iron Binding Capacity 268 ug/dL 250-450 [facility] Vitamin D 25-Hydroxy 53.5 ng/mL [facility] Comment on above: Vitamin D 25(OH) Sta tus Range Deficiency <20 ng/mL (50nmol/L) Insufficiency 20 - 30 ng/mL (50 - 75 nmol/L) Sufficiency 30 - 100 ng/mL (75 - 250 nmol/L) Toxicity >100 ng/mL (>250 nmol/L) VLDL Cholesterol 49 mg/dL 5-40 [facility] RBC Auto (Bld) [#/Vol]Ordere d By: Italia East on 06-05-2023 RBC (Bld) [#/Vol] 4.53 10*6/uL 4.2-5.4 [facility] Serum or plasma calcium aundrea urement (mass/volume)Ordered By: Italia East on 06-05-2023 Calcium [Mass/Vol] 8.6 mg/dL 8.5-10.1 [facility] Serum or plasma creatinine m easurement (mass/volume)Ordered By: Italia East on 06-05-2023 Creatinine [Mass/Vol] 1.27 mg/dL 0.55-1.02 [facility] Comment on above: The validity of the calculated GFR & GFRAA in patients over 70 years has not been determined. Clinical correlation is essential. Serum or plasma iron saturat ion measurement (mass fraction)Ordered By: Italia East on 06-05-2023 Iron saturation [Mass fraction] 34.3 % 15.0-55.0 [facility] Serum or plasma thyroid stim ulating hormone (TSH) measurement (units/volume)Ordered By: Italia East on 06-05-2023 TSH Qn 0.72 uIU/mL 0.358-3.74 [facility] Serum or plasma urea nitroge n measurement (mass/volume)Ordered By: Italia East on 06-05-2023 Urea nitrogen [Mass/Vol] 23 mg/dL 7-18 [facility] Thin prep Papanicolaou smear with manual screeningOrdered By: Italia East on 06-05-2023 Thin prep Papanicolaou smear with manual screening 4.0 g/dL 3.2-5.0 [facility] Thin prep Papanicolaou smear with manual screening 18 U/L 15-37 [facility] Thin prep Papanicolaou smear with manual screening 6 5-15 [facility] Thin prep Papanicolaou smear with manual screening 1.64 ng/dL 0.76-1.46 [facility] Whole blood hemoglobin A1c/t otal hemoglobin ratio (mass fraction)Ordered By: Italia East on 06-05-2023 HbA1c (Bld) [Mass fraction] 5.6 % 3.8-5.6 [facility] Comment on above: Normal < 5.7 % Predi abetic 5.7 - 6.4 % Diabetic >or= 6.5 % Please note range changes. Vital Signs Date Time Vital Sign Value Performing Clinician Faci lity 09-21-2024 08:45-0400 Body mass index (BMI) [Ratio] 23.3 kg/m2 Italia East MD Work Phone: [facility] 09-21-2024 08:45-0400 Body temperature 97.3 [degF] Italia East MD Work Phone: [facility] 09-21-2024 08:45-0400 Body weight 59.87 kg Italia East MD Work Phone: [facility] 09-21-2024 08:45-0400 Diastolic blood pressure 72 mm[Hg] Italia East MD Work Phone: [facility] 09-21-2024 08:45-0400 Heart rate 75 /min Italia East MD Work Phone: [facility] 09-21-2024 08:45-0400 Respiratory rate 18 /min Italia East MD Work Phone: [facility] 09-21-2024 08:45-0400 SaO2% (BldA) [Mass fraction] 97 % Italia East MD Work Phone: [facility] 09-21-2024 08:45-0400 Systolic blood pressure 115 mm[Hg] Italia East MD Work Phone: [facility] 08-04-2024 10:25-0400 Body height 160.02 cm Italia East MD Work Phone: [facility] 08-04-2024 10:25-0400 Body mass index (BMI) [Ratio] 22.8 kg/m2 Italia East MD Work Phone: [facility] 08-04-2024 10:25-0400 Body weight 58.51 kg Italia East MD Work Phone: [facility] 08-04-2024 10:25-0400 Diastolic blood pressure 65 mm[Hg] Italia East MD Work Phone: [facility] 08-04-2024 10:25-0400 Heart rate 78 /min Italia East MD Work Phone: [facility] 08-04-2024 10:25-0400 Respiratory rate 16 /min Italia East MD Work Phone: [facility] 08-04-2024 10:25-0400 Systolic blood pressure 114 mm[Hg] Italia East MD Work Phone: [facility] 03-27-2024 09:39-0500 Body height 160.02 cm Italia East MD Work Phone: [facility] 03-27-2024 09:39-0500 Body mass index (BMI) [Ratio] 21.7 kg/m2 Italia East MD Work Phone: [facility] 03-27-2024 09:39-0500 Body temperature 98 [degF] Italia East MD Work Phone: [facility] 03-27-2024 09:39-0500 Body weight 55.79 kg Italia East MD Work Phone: [facility] 03-27-2024 09:39-0500 Diastolic blood pressure 69 mm[Hg] Italia East MD Work Phone: [facility] 03-27-2024 09:39-0500 Heart rate 80 /min Italia East MD Work Phone: [facility] 03-27-2024 09:39-0500 Respiratory rate 20 /min Italia East MD Work Phone: [facility] 03-27-2024 09:39-0500 SaO2% (BldA) [Mass fraction] 94 % Italia East MD Work Phone: [facility] 03-27-2024 09:39-0500 Systolic blood pressure 103 mm[Hg] Italia East MD Work Phone: [facility] 06-19-2023 11:05-0500 Body height 160.02 cm MD Italia East Work Phone: [facility] 06-19-2023 11:05-0500 Body mass index (BMI) [Ratio] 22.3 kg/m2 MD Italia East Work Phone: [facility] 06-19-2023 11:05-0500 Body weight 57.23 kg MD Italia East Work Phone: [facility] 06-19-2023 11:05-0500 Diastolic blood pressure 56 mm[Hg] MD Italia East Work Phone: [facility] 06-19-2023 11:05-0500 Heart rate 81 /min MD Italia East Work Phone: [facility] 06-19-2023 11:05-0500 Respiratory rate 16 /min MD Italia East Work Phone: [facility] 06-19-2023 11:05-0500 Systolic blood pressure 88 mm[Hg] MD Italia East Work Phone: [facility] Encounters Encounter Date Encounter Type Care Provider Facility Start: 10-08-2024 ambulatory Chalon Kita Facility:[facility] Start: 10-06-2024 ambulatory Chalon Kita Facility:[facility] Start: 09-28-2024 Non-patient / Non-visit Princess SANTIAGO -[facility] Work Phone: Start: 09-28-2024 ambulatory Princess Youngi ty:[facility] Start: 09-23-2024 Non-patient / Non-visit [facility] Start: 09-23-2024 End: 09-23-2024 ambulatory Italia East MD Work Phone: [facility] Work Phone: Start: 09-23-2024 End: 09-23-[address] Maynor Hunter MD -[facility] Work Phone: Start: 09-23-2024 End: [facility] Start: 09-21-2024 End: 09-21-2024 Patient encounter procedure Meme SANTIAGO -[facility] Work Phone: Start: 09-21-2024 End: 09-21-2024 ambulatory Italia East MD Work Phone: [facility] Work Phone: Start: 08-19-2024 End: 08-19-2024 ambulatory Italia East MD Work Phone: [facility] Work Phone: Start: 08-19-2024 End: 08-19-[address] Italia East MD -[facility] Work Phone: Start: 08-19-2024 End: 08-19-2024 ambulatory [facility] Facility:[facility] Start: 08-12-2024 End: 08-12-[address] Italia East MD -[facility] Work Phone: Start: 08-12-2024 End: 08-12-2024 ambulatory [facility] Facility:[facility] Start: 08-04-2024 End: 08-04-[address] Maynor Hunter MD -[facility] Work Phone: Start: 08-04-2024 End: 08-04-2024 ambulatory Maynor Hunter Facility:[facility] Start: 06-16-2024 End: 06-16-2024 ambulatory Italia East MD Work Phone: [facility] Work Phone: Start: 06-16-2024 End: 06-16-[address] [facility] Start: 06-16-2024 End: 06-16-2024 ambulatory Italia East Facility:[facility] Start: 03-27-2024 End: 03-27-[address] Clifton Villegas DO -[facility] Work Phone: Start: 03-27-2024 End: 03-27-2024 ambulatory Clifton Villegas Facility:[facility] Start: 02-20-2024 End: 02-20-2024 ambulatory Italia East Facility:[facility] Start: 01-10-2024 End: 01-10-2024 ambulatory Italia East Facility:[facility] Start: 10-29-2023 End: 10-29-2023 ambulatory Italia East Facility:[facility] Start: 07-19-2023 Non-patient / Non-visit MD Krystal East Work Phone: [facility] Start: 07-19-2023 End: 07-19-2023 ambulatory MD Italia East Work Phone: [facility] Work Phone: Start: 07-19-2023 End: 07-19-2023 Patient encounter procedure MD [facility]alia East [facility] Start: 07-01-2023 End: 07-01-2023 ambulatory MD Italia East Work Phone: [facility] Work Phone: Start: 07-01-2023 End: 07-01-2023 Patient encounter procedure MD Italia East Work Phone: [facility] Work Phone: Start: 06-19-2023 End: 06-19-2023 Patient encounter procedure MD Italia East Work Phone: [facility] Work Phone: Start: 06-05-2023 End: 06-05-2023 Patient encounter procedure MD Italia East Work Phone: [facility], [place] [facility] Date Procedure Procedure Detail Performing Clinician Start: 08-19-2024 Ultrasonography of breast Italia East MD Work Phone: Start: 08-12-2024 Screening mammography C joshua East MD Work Phone: Start: 06-16-2024 Parathyroid hormone measurement Italia East MD Work Phone: Start: 07-01-2023 Urine culture MD Italia East Work Phone: Plan of Treatment Date Care Activity Detail Author Start: 10-08-2024 Walking distance 6 minutes [facility] Start: 10-06-2024 Measurement of respi ratory function [facility] Measurement of respi ratory function [facility] Patient referral [facility] Work Phone: [facility] Walking distance 6 minutes W [facility] Payers Date Payer Category Payer Self-pay 2023 Unknown [id number] 2023 Medicare [id number] [id number] 2023 Unknown [id number] Unknown [id number] 2.16.8 [id number] Unknown [id number] 2.16.8 [id number] Unknown [id number] 2.16.8 [id number] Unknown [id number] 2.16.8 [id number] Unknown [id number] 2.16.8 40.1.354790.3.579.2.462 Unknown [id number] 2.16.8 40.1.207340.3.579.2.462 Unknown [id number] 2.16.8 40.1.988019.3.579.2.462 Unknown [id number] 2.16.8 40.1.082955.3.579.2.462 Unknown [id number] 2.16.8 40.1.095097.3.579.2.462 Unknown [id number] 2.16.8 [id number] Unknown [id number] 2.16.8 [id number] Unknown [id number] 2.16.8 [id number] Unknown [id number] 2.16.8 [id number] Unknown [id number] 2.16.8 [id number] Social History Date Type Detail Facility Start: 06-19-2023 Tobacco smoking stat [facility] Unknown if ever smoked [facility] Start: 1975 Sex Assigned At Female [facility] Start: 06-19-2023 Tobacco smoking stat [facility] Never smoked tobacco (finding) [facility] Start: 06-30-2024 Sex Female (finding) [facility] Radiology Diagnostic study note 08-19-2024 Note Date & Type Note Facility 08-19-2024 Radiology Diagnostic study note [facility] Imaging Services [address] [place], [place] [address] Breast Limited Unilateral MR#: [id number] Acct: [id number] Name: ALVA BARNES JULIET Rep #: [id number] : 1975 F 49 From: Chapis Nicolas MD PCP: Dr. Italia East MD Status: REG CL I Study:Breast Limited Unilateral Date of Exam: 08/19/24 Exam# [id number] Ordering Dr: Krystal East MD PROCEDURE: BREAST LIMITED UNILATERAL 08/19/2024 REASON FOR EXAM: 49-year-old female presents for follow-up of the left breast findings seen on the examination of 08/12/2024. Family history of breast cancer in her mother at age 47, a maternal great aunt and a paternal grandmother. TECHNIQUE: Targeted left breast ultrasound. COMPARISON: Mammogram 08/12/2024 FINDINGS: Left breast ultrasound was targeted to the retroareolar. Follow-up examination performed for the left breast mass visualized on the examination of 08/12/2024. On the present examination, there is a cyst in the 6 o'clock retroareolar left breast, measuring 0.8 x 0.4 x 0.6 cm. This correlates with the mammographic finding. Also, there are some dilated ducts in the retroareolar region. US/Breast Limited Unilateral IMPRESSION: Impression: Benign cyst in the left breast at 6 o'clock retroareolar. Birads: BI-RADS 2: BENIGN. RECOMMEND ANNUAL MAMMOGRAPHIC SCREENING. Reading Location: [id number] CC: Dr. 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 August 04, 2024 10:12am [facility] Work Phone: Evaluation note 08-04-2024 Note Date & Type Note Facility 08-04-2024 Evaluation note Diagnosis Onset Date Resolution DiGeorge's syndrome acute August 04, 2024 10:12am Hypertriglyceridemia acute Apri l 2024 10:12am Syncope acute August 04 10:12am 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 August 04, 2024 10:12am 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 August 04, 2024 10:12am Dyspnea acute September 21, 2024 10:09am Asthma chronic September 21, 2024 10:09am CECIL (obstructive sleep apnea) chronic September 21, 2024 10:09am 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 September 21 025 10:09am [facility] Work Phone: Evaluation note 08-04-2024 Note Date & Type Note Facility 08-04-2024 Evaluation note Diagnosis Onset Date Resolution DiGeorge's syndrome acute August 04, 2024 10:12am Hypertriglyceridemia acute Apri 2024 10:12am Syncope acute August 04 10:12am 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 August 04, 2024 10:12am 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 August 04, 2024 10:12am Asthma chronic September 21, 2024 10:09am Dyspnea chronic September 21, 2024 10:09am CECIL (obstructive sleep apnea) chronic September 21, 2024 10:09am 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 September 21 025 10:09am [facility] Work Phone: Evaluation note 03-27-2024 Note Date & Type Note Facility 03-27-2024 Evaluation note Diagnosis Onset Date Resolution Asthma chronic March 27, 2024 11:02am CECIL (obstructive sleep apnea) chronic March 27 024 11:02am 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 March 27 024 11:02am [facility] Work Phone: Evaluation note Note Date & Type Note Facility Evaluation note Diagnosis Onset Date DiGeorge's syndrome acute Hypertriglyceridemia acute Pulmonary atresia with ventr icular septal defect (VSD) of Fallot type acute Syncope acute Tetralogy of Fallot due to d eletion at chromosome 22q11.2 acute [facility] Work Phone: Reason for referral (narrative) Note Date & Type Note Facility Reason for referral (narrative) No reason for referral information available [facility] Work Phone: Chief Complaint and Reason for Visit Chief Complaint EST CARE EORDER Reason for Visit DiGeorge's syndrome Hypertriglyceridemia 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 Syncope 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 Chief Complaint EST CARE EORDER Tetralogy of Fallot Reason for Visit DiGeorge's syndrome Hypertriglyceridemia 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 Syncope 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 Chief Complaint Admit Date Pulmonary Atresia March 27, 2024 11:02am Reason for Visit Admit Date Asthma March 27, 2024 11:02am CECIL (obstructive sleep apnea) March 152023 11:02am Pulmonary atresia with ventr icular septal defect (VSD) of Fallot type March 27, 2024 11:02am Chief Complaint Admit Date 1 y fu w CAPACITY PLANNING ANALYST per CAPACITY PLANNING ANALYST August 04, 2024 10 :12am SCREENING August 12, 2024 10: 00am LEFT SIDE ABNORMAL BI August 19, 2024 12:0 4pm Reason for Visit Admit Date DiGeorge's syndrome August 04, 2024 10: 12am Hypertriglyceridemia August 04, 2024 10 :12am Syncope August 04, 2024 10: 12am 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 August 04, 2024 10:12am Pulmonary atresia with ventr icular septal defect (VSD) of Fallot type August 04, 2024 10:12am Chief Complaint Admit Date 1 y fu w CAPACITY PLANNING ANALYST per CAPACITY PLANNING ANALYST August 04, 2024 10 :12am SCREENING August 12, 2024 10: 00am LEFT SIDE ABNORMAL BI August 19, 2024 12:0 4pm 6 M FU September 21, 2024 10:09 am Reason for Visit Admit Date DiGeorge's syndrome August 04, 2024 10: 12am Hypertriglyceridemia August 04, 2024 10 :12am Syncope August 04, 2024 10: 12am 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 August 04, 2024 10:12am Pulmonary atresia with ventr icular septal defect (VSD) of Fallot type August 04, 2024 10:12am Dyspnea September 21, 2024 10:09 am Asthma September 21, 2024 10:09 am CECIL (obstructive sleep apnea) September 21, 2024 10:09am Pulmonary atresia with ventr icular septal defect (VSD) of Fallot type September 21, 2024 10:09am Chief Complaint Admit Date 1 y fu w CAPACITY PLANNING ANALYST per CAPACITY PLANNING ANALYST August 04, 2024 10 :12am SCREENING August 12, 2024 10: 00am LEFT SIDE ABNORMAL BI August 19, 2024 12:0 4pm 6 M FU September 21, 2024 10:09 am PROSTHETIC HEART VALVE September 23, 2024 1 0:57am Amb Documentation September 28, 2024 2:17 pm Reason for Visit Admit Date DiGeorge's syndrome August 04, 2024 10: 12am Hypertriglyceridemia August 04, 2024 10 :12am Syncope August 04, 2024 10: 12am 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 August 04, 2024 10:12am 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 Maynor Hunter MD Attending Provider Active Italia East MD Primary Care Provider, Referring Prov ider Active Team Status: Inactive Member Role Status Dates Italia East MD Primary Care Provide r, Attending Provider, Referring Provider Active Team Status: Inactive Member Role Status Dates Italia East MD Primary Care Provider, Attending Prov ider Active Team Status: Active Member Role Status Dates Italia East MD Primary Care Provider Active Dr. Maynor Hunter MD Attending Provider Active Team Status: Inactive Member Role Status Dates Italia East MD Primary Care Provider Active Dr. Maynor Hunter MD Attending Provider, Referring Pro vider Active Team Status: Inactive Member Role Status Joao East MD Primary Care Provider Active St art: March 27, 2024 End: March 27, 2024 Italia East MD Referring Provider Active Start : March 27, 2024 End: March 27, 2024 Dr. Clifton Villegas DO Attending Provider Active S tart: March 27, 2024 End: March 27, 2024 Team Status: Inactive Member Role Status Joao East MD Primary Care Provider Active St art: June 16, 2024 End: June 16, 2024 Italia East MD Attending Provider Active Start : June 16, 2024 End: June 16, 2024 Italia East MD Referring Provider Active Start : June 16, 2024 End: June 16, 2024 Team Status: Inactive Member Role Status Joao East MD Primary Care Provider Active St art: August 04, 2024 End: August 04, 2024 Italia East MD Referring Provider Active Start : August 04, 2024 End: August 04, 2024 Dr. Maynor Hunter MD Attending Provider Active S tart: August 04, 2024 End: August 04, 2024 Team Status: Inactive Member Role Status Joao East MD Primary Care Provider Active St art: August 12, 2024 End: August 12, 2024 Italia East MD Attending Provider Active Start : August 12, 2024 End: August 12, 2024 Italia East MD Referring Provider Active Start : August 12, 2024 End: August 12, 2024 Team Status: Inactive Member Role Status Joao East MD Primary Care Provider Active St art: August 19, 2024 End: August 19, 2024 Italia East MD Attending Provider Active Start : August 19, 2024 End: August 19, 2024 Italia East MD Referring Provider Active Start : August 19, 2024 End: August 19, 2024 Team Status: Inactive Member Role Status Joao East MD Primary Care Provider Active St art: September 21, 2024 End: September 21, 2024 Italia East MD Referring Provider Active Start : September 21, 2024 End: September 21, 2024 Meme Lal ENGINE MAINTENANCE MECHANIC, ENGINE MAINTENANCE MECHANIC-C Attending Provider Active Start: September 21, 2024 End: September 21, 2024 Team Status: Inactive Member Role Status Joao East MD Primary Care Provider Active St art: September 23, 2024 End: September 23, 2024 Dr. Maynor Hunter MD Attending Provider Active S tart: September 23, 2024 End: September 23, 2024 Dr. Maynor Hunter MD Referring Provider Active S tart: September 23, 2024 End: September 23, 2024 Team Status: Active Member Role Status Joao East MD Primary Care Provider Active St art: September 23, 2024 Dr. Maynor Hunter MD Attending Provider Active S tart: September 23, 2024 Team Status: Active Member Role Status Joao East MD Primary Care Provider Active St art: September 28, 2024 Princess Russell ENGINE MAINTENANCE MECHANIC, ENGINE MAINTENANCE MECHANIC-C Attending Provider Active Start: September 28, 2024 Goals (unrecognized section and content) Goals may be documented in a n alternate sectionGoals may be documented in an alternate sectionGoals may be documented in an alternate sectionGoals may be documented in an alternate sectionGoals may be documented in an alternate sectionGoals may be documented in an alternate section INFORMATION SOURCE (unrecogn ized section and content) DATE CREATED AUTHOR 10/03/2024 [facility] FOR RECORDS PERTAINING TO PATIENTS WHO ARE OR HAVE BEEN ENROLLED IN A CHEMICAL DEPENDENCY/SUBSTANCEABUSE PROGRAM, SOME INFORMATION MAY BE OMITTED. This clinical summary was aggregated from multiple sources. Caution should be exercised in using it in the provision of clinical care. This summary normalizes information from multiple sources, and as a consequence, information in this document may materially change the coding, format and clinical context of patient data. In addition, data may be omitted in some cases. CLINICAL DECISIONS SHOULD BE BASED ON THE PRIMARY CLINICAL RECORDS. [employer] provides no warranty or guarantee of the accuracy or completeness of information in this document.
== END | disposition home or self-care (01) ==
LOC: PSN 09:50
PROVIDERS: PCP Family Medicine; Referring Provider Nurse Practitioner Acute Care; Visit Provider Nurse Practitioner Acute Care
DX: R06.00 Dyspnea, unspecified (principal)
CPT/HCPCS: 94060; 94726; 94729

== ENCOUNTER → 2024-10-08 | Outpatient (CLI) | payer MEDICARE, OTHER, SELFPAY ==
[2024-10-08 11:15] VITALS: PULSE 85; PULSE 90; PULSE 91; PULSE 92; PULSE 94; PULSE 95; PULSE 96; O2SAT 93; O2SAT 94; O2SAT 95; O2SAT 97
--- NOTE | 2024-10-08 11:15 | CPS ---
Patient's lips briefly became cyanotic while walking the 4th minute of her 6 minute walk. Pt says this isn't abnormal for her do to her heart issues.
--- NOTE | 2024-10-09 10:56 | PCM.PSN.6M ---
PSN 6 Minute Walk Test 6 Minute Walk Test 6 Minute Walk Test: 6 Minute Walk Test PSN:6-Minute Walk Test Start: 10/08/24 08:35 Freq: Status: Active Protocol: RESP.6MINW Document 10/08/24 11:15 [facility] (Rec: 10/08/24 11:38 [facility] [id number]) 6 Minute Walk Test Assistive device Walker used: Pre-test Oxygen Delivery Room Air Method Pulse Ox (%) 97 Pulse Rate (60-100 85 beats/min) Dyspnea Dolly Scale ( 1 0-10) Exertion Dolly Scale 6 (6-20) 1st minute Oxygen Delivery Room Air Method Pulse Ox (%) 94 Pulse Rate (60-100 90 beats/min) 2nd minute Oxygen Delivery Room Air Method Pulse Ox (%) 94 Pulse Rate (60-100 91 beats/min) 3rd minute Oxygen Delivery Room Air Method Pulse Ox (%) 94 Pulse Rate (60-100 92 beats/min) 4th minute Oxygen Delivery Room Air Method Pulse Ox (%) 93 Pulse Rate (60-100 94 beats/min) Reported Symptoms Cyanotic 5th minute Oxygen Delivery Room Air Method Pulse Ox (%) 95 Pulse Rate (60-100 95 beats/min) 6th minute Oxygen Delivery Room Air Method Pulse Ox (%) 93 Pulse Rate (60-100 96 beats/min) Dyspnea Dolly Scale ( 2 0-10) Exertion Dolly Scale 8 (6-20) Post-test Oxygen Delivery Room Air Method Pulse Ox (%) 97 Pulse Rate (60-100 94 beats/min) Full Laps Walked 14 Partial Lap, Number 0 of Tiles Walked Total Distance 826 Walked (ft) 10/08/24 11:15 (created 10/08/24 11:34) Cardiopulmonary Services by Ashlyn Nelson Patient's lips briefly became cyanotic while walking the 4th minute of her 6 minute walk. Pt says this isn't abnormal for her do to her heart issues. Initialized on 10/08/24 11:34 - END OF NOTE Interpretation Interpretation: The patient ambulated 826 feet over the course of 6 minutes beginning on room air with the use of a rollator. Pretesting oxygen saturation was noted to be 97% on room air. With ambulation, the francisco j oxygen saturation was 93%. There was no significant exertional oxygen desaturation. Recommendations Recommendations: There is no indication for the use of supplemental oxygen at this time.
== END | disposition home or self-care (01) ==
LOC: PSN 11:10
PROVIDERS: PCP Family Medicine; Referring Provider Nurse Practitioner Acute Care; Visit Provider Nurse Practitioner Acute Care
DX: R06.00 Dyspnea, unspecified (principal)
CPT/HCPCS: 94618

== ENCOUNTER → 2024-11-04 | Outpatient (CLI) | payer MEDICARE, OTHER, SELFPAY ==
[2024-11-04 10:20] LABS: Hematocrit 38.2 % (37-47); Hemoglobin 12.7 g/dL (12.0-15.0); Mean Corp Hgb Conc 33.2 g/dL (32-36); Mean Corpuscular Volume 90.3 fL (81-99); Mean Platelet Vol. 11.2 fl (6.2-12.0); Platelet Count 192 K/mm3 (150-450); RBC Distribution Width CV 12.1 % (11.6-14.6); RBC Distribution Width SD 39.7 fl (35.1-43.9); Red Blood Count 4.23 M/mm3 (4.2-5.4); White Blood Count 8.0 K/mm3 (4.4-11.0)
[2024-11-04 11:14] LABS: Creatinine, Urine (random) 32.50 mg/dL (28.00-217.00); Microalbumin,Random Urine < 12.0 mg/L (<20 mg/L)
[2024-11-04 11:19] LABS: Anion Gap 13 (5-15); BUN 17 mg/dL (4-19); BUN/Creat Ratio 13.3 RATIO (10-20); Calcium,Total 9.0 mg/dL (7.6-11.0); Carbon Dioxide 24.1 mmol/L (21.0-32.0); Chloride 96 mmol/L (98-108); Glucose 147 mg/dL (70-99); Potassium 4.4 mmol/L (3.3-5.1)
== END | disposition home or self-care (01) ==
LOC: MFPLAB 09:23
PROVIDERS: PCP Family Medicine; Referring Provider Family Medicine; Visit Provider Family Medicine
DX: E11.9 Type 2 diabetes mellitus without complications (principal); E03.8 Other specified hypothyroidism
CPT/HCPCS: 36415; 80048; 82043; 82570; 84443; 85027

== ENCOUNTER → 2025-01-07 | Outpatient (CLI) | payer MEDICARE, OTHER, SELFPAY ==
[2025-01-07 12:43] LABS: PTHIN 12 pg/mL (11-61)
[2025-01-07 12:56] LABS: AST(SGOT) 20 U/L (<=31); Alanine Aminotransfer ALT/SGPT 15 U/L (<=34); Albumin, Serum 4.7 g/dL (3.5-5.0); Alkaline Phosphatase 63 U/L (35-104); Anion Gap 13 (5-15); BUN 22 mg/dL (4-19); BUN/Creat Ratio 17.4 RATIO (10-20); Calcium,Total 9.5 mg/dL (7.6-11.0); Carbon Dioxide 24.0 mmol/L (21.0-32.0); Chloride 98 mmol/L (98-108); Globulin 2.5 g/dL (2.2-4.2); Glucose 110 mg/dL (70-99); Potassium 4.6 mmol/L (3.3-5.1); Vitamin D,25 Hydroxy 45.3 ng/mL (30-100)
== END | disposition home or self-care (01) ==
LOC: MFPLAB 10:43
PROVIDERS: PCP Family Medicine; Visit Provider Family Medicine
DX: E21.3 Hyperparathyroidism, unspecified (principal); N18.30 Chronic kidney disease, stage 3 unspecified
CPT/HCPCS: 36415; 80053; 82306; 83970; 84443